=== PATIENT | female | born 1955 | race Caucasian/White ===

== ENCOUNTER 2017-10-28 01:32 | Inpatient (IN) | payer MEDICARE, MEDICAID ==
--- NOTE | 2017-10-28 02:06 | ED Physician Chart ---
ED Chief Complaint/HPI - Patient Information Date Seen:: 10/28/17 Time Seen:: 01:45 Chief Complaint:: fever History of Present Illness:: this is a 62 yo downs syndrome female was found to have fever last night and was sent to this er for evaluation and treatment. she is chronically ill with thyroid disease,hyperlipidema,seizures and dementia. Allergies:: Allergies Allergy/AdvReac Type Severity Reaction Status Date / Time No Known Allergies Allergy Verified 10/28/17 01:46 Vitals:: Vital Signs - 8 hr 10/28/17 01:35 Temp 97.7 F HR 67 RR 18 BP 105/38 O2 Sat % 96 Historian:: Patient, Medical Records Review:: Nurse's Note Reviewed ED Review of Systems - Review of Systems Skin: Other (this patient is unable to give a review of systems.) ED Past Medical History - Past Medical History Obtainable: Yes Past Medical History: Dyslipidemia, Seizures, Thyroid disorder, Dementia, Other (downs syndrome) Family History: None Social History: Non Smoker, No Alcohol, No Drug Use, Care Facility Surgical History: None Psychiatricy History: Dementia Medication: Reviewed Family Medical History - Family Member Mother History Unknown: Yes ED Physical Exam - Physical Examination General/Constitutional: Awake, Well-developed, well-nourished, Alert, No distress, GCS 15, Non-toxic appearing, Ambulatory Other Gen/Cons comments:: this patient is non-verbral with a resting tremor of the right upper extremity and a spastic right lower extremity. Head: Atraumatic Eyes: Lids, conjuctiva normal, PERRL, EOMI Skin: Nl inspection, No rash, No skin lesions, No ecchymosis, Well hydrated, No lymphadenopathy ENMT: External ears, nose nl, Nasal exam nl, Lips, teeth, gums nl Neck: Nontender, Full ROM w/o pain, No JVD, No nuchal rigidity, No bruit, No mass, No stridor Respiratory: Nl effort/Exclusion, Clear to Auscultation, No Wheeze/Rhonchi/Rales Cardio Vascular: RRR, No murmur, gallop, rubs, NL S1 S2 GI: No tenderness/rebounding/guarding, No organomegaly, No hernia, Normal BS's, Nondistended, No mass/bruits, No McBurney tenderness : No CVA tenderness Extremities: No tenderness or effusion, Full ROM, normal strength in all extremities, No edema, Normal digits & nails Neuro/Psych: Alert/oriented, DTR's symmetric, Normal sensory exam, Normal motor strength, Judgement/insight normal, Mood normal, Normal gait, No focal deficits Other Neuro/Psych comments:: the patient appears to be demented with on verbal responses. Misc: Normal back, No paraspinal tenderness ED Labs/Radiology/EKG Results - Lab Results Results: Abnormal Lab Results 10/28/17 10/28/17 10/28/17 02:00 02:00 02:00 WBC 7.3 RBC 4.53 Hgb 13.5 Hct 40.9 L MCV 90.3 MCH 29.9 MCHC Differential 33.1 RDW 13.1 Plt Count 265 MPV 7.2 Neutrophils % 56.7 Lymphocytes % 32.2 Monocytes % 9.2 Eosinophils % 0.6 Basophils % 1.3 PT 11.0 INR 1.06 Sodium 139 Potassium 3.8 Chloride 105 Carbon Dioxide 27.3 Anion Gap 10.5 BUN 17 Creatinine 0.9 Est GFR ( Amer) > 60.0 Est GFR (Non-Af Amer) > 60.0 BUN/Creatinine Ratio 18.9 Glucose 89 Calcium 9.2 Total Bilirubin 0.3 AST 14 ALT 13 Alkaline Phosphatase 73 Troponin I Total Protein 6.5 Albumin 3.1 L Globulin 3.4 Albumin/Globulin Ratio 0.9 L Urine Source Urine Color Urine Clarity Urine pH Ur Specific [place] Urine Protein Urine Glucose (UA) Urine Ketones Urine Blood Urine Nitrate Urine Bilirubin Urine Urobilinogen Ur Leukocyte Esterase Urine RBC Urine WBC Ur Epithelial Cells Urine Bacteria 10/28/17 10/28/17 02:00 02:10 WBC RBC Hgb Hct MCV MCH MCHC Differential RDW Plt Count MPV Neutrophils % Lymphocytes % Monocytes % Eosinophils % Basophils % PT INR Sodium Potassium Chloride Carbon Dioxide Anion Gap BUN Creatinine Est GFR ( Amer) Est GFR (Non-Af Amer) BUN/Creatinine Ratio Glucose Calcium Total Bilirubin AST ALT Alkaline Phosphatase Troponin I 0.01 Total Protein Albumin Globulin Albumin/Globulin Ratio Urine Source CLEAN C Urine Color YELLOW Urine Clarity CLOUDY H Urine pH 6.5 Ur Specific [place] 1.020 Urine Protein TRACE Urine Glucose (UA) NEGATIVE Urine Ketones NEGATIVE Urine Blood TRACE Urine Nitrate POSITIVE H Urine Bilirubin NEGATIVE Urine Urobilinogen 0.2 Ur Leukocyte Esterase SMALL H Urine RBC 0-2 Urine WBC 10-25 H Ur Epithelial Cells MODERATE Urine Bacteria MANY H - EKG Interpretations EKG Time:: 02:02 Rate & Rhythm: rate 62, sinus [place]: right axis Intervals: no ectopy seen ED Assessment - Assessment General Assessment: fever ED Septic Shock - . Is Septic Shock (SBP<90, OR Lactate>4 mmol\L) present?: No - <6hrs of presentation: Vital Signs: Vital Signs - 8 hr 10/28/17 01:35 Temp 97.7 F HR 67 RR 18 BP 105/38 O2 Sat % 96 ED Reassessment (Disposition) - Reassessment Reassessment Condition:: Unchanged - Diagnosis Diagnosis:: fever urinary tract infection - Patient Disposition Discharge/Transfer:: Acute Care w/in this hosp Admitting Medical Physician:: Alison Patino Condition at Disposition:: Improved
[2017-10-28 02:20] LABS: % BASOPHILS 1.3 % (0.0-2.0); % EOSINOPHILS 0.6 % (0.0-5.0); % LYMPHOCYTES 32.2 % (20.0-50.0); % MONOCYTES 9.2 % (2.0-10.0); % NEUTROPHILS 56.7 % (40.0-80.0); BASOPHILE ABSOLUTE 0.1 Th/cumm (0-0.2); HEMATOCRIT 40.9 % (41.0-60); HEMOGLOBIN 13.5 gm/dL (12-16); LYMPHOCYTE ABSOLUTE 2.4 Th/cmm (1.5-3.0); MEAN CELL VOLUME 90.3 fl (81-100); MEAN CORPUSCULAR HEMOGLOBIN 29.9 pg (27.0-31.0); MEAN CORPUSCULAR HGB CONC 33.1 pg (28.0-36.0); MEAN PLATELET VOLUME 7.2 fl; MONOCYTE ABSOLUTE 0.7 Th/cmm (0.3-1.0); NEUTROPHILE ABSOLUTE 4.1 Th/cmm (1.8-8.0); PLATELET COUNT 265 Th/cmm (150-400); RED BLOOD COUNT 4.53 Mil/cmm (3.80-5.10); RED CELL DISTRIBUTION WIDTH 13.1 % (11.5-20.0); WHITE BLOOD COUNT 7.3 Th/cmm (4.8-10.8)
[2017-10-28 02:33] LABS: URINE SOURCE CLEAN C
[2017-10-28 02:41] LABS: ALB/GLOB RATIO 0.9 (1.0-1.8); ALBUMIN 3.1 gm/dL (3.7-5.3); ALKALINE PHOSPHATASE 73 U/L (34-104); ANION GAP 10.5 (7.0-16.0); BILIRUBIN,TOTAL 0.3 mg/dL (0.3-1.0); BUN - UREA NITROGEN 17 mg/dL (7-25); CALCIUM SERUM 9.2 mg/dL (8.6-10.3); CARBON DIOXIDE 27.3 mEq/L (21.0-31.0); CHLORIDE 105 mEq/L (98-107); CREATININE - SERUM 0.9 mg/dL (0.6-1.2); GFR AFRICAN-AMERICAN > 60.0 ml/min (>90); GFR NON AFRICAN-AMERICAN > 60.0 ml/min; GLUCOSE 89 mg/dL (70-105); POTASSIUM SERUM 3.8 mEq/L (3.5-5.1); SGOT 14 U/L (13-39); SGPT/ALT 13 U/L (7-52); SODIUM SERUM 139 mEq/L (136-145); TOTAL PROTEIN,SERUM 6.5 gm/dL (6.0-8.3)
[2017-10-28 02:41] LABS: URINE BILIRUBIN NEGATIVE (NEGATIVE); URINE CLARITY CLOUDY (CLEAR); URINE COLOR YELLOW; URINE GLUCOSE (UA) NEGATIVE (NEGATIVE); URINE KETONE NEGATIVE (NEGATIVE); URINE MICROSCOPIC INDICATED? YES
[2017-10-28 02:44] LABS: URINE BLOOD TRACE (NEGATIVE); URINE NITRATE POSITIVE (NEGATIVE); URINE PH 6.5 (4.6 - 8.0); URINE PROTEIN TRACE mg/dL (NEGATIVE); URINE UROBILINOGEN 0.2 E.U./dL (0.2 - 1.0)
[2017-10-28 02:45] LABS: URINE LEUKOCYTE ESTERASE SMALL (NEGATIVE); URINE RBC 0-2 /hpf (0-5)
[2017-10-28 02:46] LABS: URINE BACTERIA MANY /hpf (NONE SEEN); URINE EPITHELIAL CELLS MODERATE /lpf (FEW)
[2017-10-28 02:47] LABS: INR 1.06 (0.5-1.4)
[2017-10-28] MEDS ORDERED: Magnesium Hydroxide (MOM) 30 mL UDC PO PRN (08:55)
[2017-10-28] MEDS ORDERED: LEVOTHYROXINE SODIUM 200 MCG PO SCH (09:00)
[2017-10-28] MEDS ORDERED: CHOLECALCIFEROL 1000 UNIT PO SCH (09:00)
[2017-10-28 09:48] LABS: CHOLESTEROL 161 mg/dL (<200); HDL -HIGH DENSITY LIPOPROTEIN 49 mg/dL (23-92); TRIGLYCERIDES 80 mg/dL (<150)
[2017-10-28] MEDS ORDERED: D5-0.45NS 1,000 ML IV SCH (10:01)
[2017-10-28] MEDS: Levofloxacin 500mg/100mL 500 MG/100 ML BAG IV SCH (10:24)
[2017-10-28] MEDS: Levothyroxine 0.1 Mg Tab PO SCH (10:25)
[2017-10-28] MEDS: Levothyroxine 0.025 Mg Tab PO SCH (10:26)
[2017-10-28] MEDS: D5-0.45NS 1,000 ML IV SCH (10:27)
--- NOTE | 2017-10-28 11:05 | History & Physical ---
ADMIT DATE: 10/28/2017 HISTORY OF PRESENT ILLNESS: This patient got a call from the Emergency Room, she had been calling ____ from 2:51 a.m., he had not answered; they decided to call me for admission at 7:50. Essentially, this patient has been diagnosed with urinary tract infection, Down syndrome, intellectual disability, hypothyroidism, hyperlipidemia, dementia, seizures, seborrheic dermatitis, vitamin D deficiency, fever and possible sepsis. The patient apparently was brought to the Emergency Room for fever and weakness and found to have UTI and sepsis. PAST MEDICAL HISTORY: As enumerated above. PAST SURGICAL HISTORY: As enumerated above. FAMILY HISTORY: Unremarkable. PHYSICAL EXAMINATION: HEAD: Normal. ENT: Normal. NECK: Supple, nontender. LUNGS: Clear. CARDIOVASCULAR SYSTEM: S1, S2 heard. ABDOMEN: Soft. Bowel sounds are heard. CENTRAL NERVOUS SYSTEM: The patient is mentally challenged. LABORATORY DATA: WBC count is 7.3, hemoglobin 13.5. Electrolytes are normal and EKG was normal. Chest x-ray was normal. DIAGNOSES: Fever, sepsis, urinary infection, ____, decreased mentation, dementia, seizures, history of hyperlipidemia, history of thyroid disorder, hypothyroidism. PLAN: The patient is being admitted. I will go ahead and give her IV antibiotics. Dr. Putnam to see the patient and I will follow the patient. JOB# [id number]
[2017-10-28] MEDS ORDERED: Pneumococcal Vaccine 0.5 mL Vial IM ONE (14:55)
--- NOTE | 2017-10-28 20:20 | Consultation ---
Consult Note - Consult Note Service Date: 10/28/17 Referring Physician: Meghan Michaels Consult Note: PHYSICIAN Consultation Note: Date of Admission: 10/28/17 Purpose of Consultation: UTI. Chief Complaint: Patient WILBER ROB was admitted to location Medical/ Surgical Unit I with FEVER,UTI. History of Present Illness: 62 year female with a past medical history of dementia, Down syndrome, a hypothyroidism, developmental delay, hyperlipidemia, seizure disorder, with vitamin D deficiency, developed fever so patient was sent to the ER for further evaluation and management. On initial evaluation patient's temperature was 97.7 F and WBC count was 7300. Urinalysis showed a signs of UTI. Levaquin was started and ID consult was called for antibiotic management. Past Medical History: dementia, Down syndrome, a hypothyroidism, developmental delay, hyperlipidemia, seizure disorder, seborrheic dermatitis, with vitamin D deficiency Allergies Allergy/AdvReac Type Severity Reaction Status Date / Time No Known Allergies Allergy Verified 10/28/17 01:46 Vital Signs Temp 97.9 F 10/28/17 15:52 Pulse 95 10/28/17 15:52 Resp 18 10/28/17 15:52 BP 128/59 10/28/17 15:52 Pulse Ox 99 10/28/17 15:52 Intake & Output 10/28/17 10/28/17 10/29/17 06:59 18:59 06:59 Weight (lbs) 56.245 kg 2.325 kg Other: # Voids 3 # Bowel Movements 0 Weight Source Estimated Bedscale Laboratory Results - last 24 hr 10/28/17 10/28/17 10/28/17 02:00 02:00 02:00 WBC 7.3 RBC 4.53 Hgb 13.5 Hct 40.9 L MCV 90.3 MCH 29.9 MCHC Differential 33.1 RDW 13.1 Plt Count 265 MPV 7.2 Neutrophils % 56.7 Lymphocytes % 32.2 Monocytes % 9.2 Eosinophils % 0.6 Basophils % 1.3 PT 11.0 INR 1.06 Sodium 139 Potassium 3.8 Chloride 105 Carbon Dioxide 27.3 Anion Gap 10.5 BUN 17 Creatinine 0.9 Est GFR ( Amer) > 60.0 Est GFR (Non-Af Amer) > 60.0 BUN/Creatinine Ratio 18.9 Glucose 89 Calcium 9.2 Total Bilirubin 0.3 AST 14 ALT 13 Alkaline Phosphatase 73 Troponin I Total Protein 6.5 Albumin 3.1 L Globulin 3.4 Albumin/Globulin Ratio 0.9 L Triglycerides Cholesterol LDL Cholesterol Direct HDL Cholesterol TSH Urine Source Urine Color Urine Clarity Urine pH Ur Specific [place] Urine Protein Urine Glucose (UA) Urine Ketones Urine Blood Urine Nitrate Urine Bilirubin Urine Urobilinogen Ur Leukocyte Esterase Urine RBC Urine WBC Ur Epithelial Cells Urine Bacteria 10/28/17 10/28/17 10/28/17 02:00 02:10 09:05 WBC RBC Hgb Hct MCV MCH MCHC Differential RDW Plt Count MPV Neutrophils % Lymphocytes % Monocytes % Eosinophils % Basophils % PT INR Sodium Potassium Chloride Carbon Dioxide Anion Gap BUN Creatinine Est GFR ( Amer) Est GFR (Non-Af Amer) BUN/Creatinine Ratio Glucose Calcium Total Bilirubin AST ALT Alkaline Phosphatase Troponin I 0.01 Total Protein Albumin Globulin Albumin/Globulin Ratio Triglycerides 80 Cholesterol 161 LDL Cholesterol Direct 95 HDL Cholesterol 49 TSH Urine Source CLEAN C Urine Color YELLOW Urine Clarity CLOUDY H Urine pH 6.5 Ur Specific [place] 1.020 Urine Protein TRACE Urine Glucose (UA) NEGATIVE Urine Ketones NEGATIVE Urine Blood TRACE Urine Nitrate POSITIVE H Urine Bilirubin NEGATIVE Urine Urobilinogen 0.2 Ur Leukocyte Esterase SMALL H Urine RBC 0-2 Urine WBC 10-25 H Ur Epithelial Cells MODERATE Urine Bacteria MANY H 10/28/17 09:20 WBC RBC Hgb Hct MCV MCH MCHC Differential RDW Plt Count MPV Neutrophils % Lymphocytes % Monocytes % Eosinophils % Basophils % PT INR Sodium Potassium Chloride Carbon Dioxide Anion Gap BUN Creatinine Est GFR ( Amer) Est GFR (Non-Af Amer) BUN/Creatinine Ratio Glucose Calcium Total Bilirubin AST ALT Alkaline Phosphatase Troponin I Total Protein Albumin Globulin Albumin/Globulin Ratio Triglycerides Cholesterol LDL Cholesterol Direct HDL Cholesterol TSH 0.14 L Urine Source Urine Color Urine Clarity Urine pH Ur Specific [place] Urine Protein Urine Glucose (UA) Urine Ketones Urine Blood Urine Nitrate Urine Bilirubin Urine Urobilinogen Ur Leukocyte Esterase Urine RBC Urine WBC Ur Epithelial Cells Urine Bacteria Home Medication Medication Instructions Recorded Type Acetaminophen [Tylenol] 325 mg PO Q4HR PRN 10/28/17 History Calcium Carbonate [Oyster Shell 500 mg PO 1700 10/28/17 History Calcium] Cholecalciferol (Vitamin D3) 1,000 unit PO DAILY 10/28/17 History [Vitamin D3] Donepezil Hcl [Aricept] 10 mg PO DAILY 10/28/17 History Lamotrigine [Lamictal] 50 mg PO BID 10/28/17 History Levothyroxine Sodium 25 mcg PO DAILY 10/28/17 History Levothyroxine Sodium 200 mcg PO DAILY 10/28/17 History Magnesium Hydroxide [Milk of 30 ml PO Q72HR PRN 10/28/17 History Magnesia] Simvastatin [Zocor] 10 mg PO HS 10/28/17 History Current Medications Generic Name Dose Route Start Last Admin Trade Name Barbie PRN Reason Stop Dose Admin Acetaminophen 325 mg 10/28/17 08:55 Tylenol PO 12/27/17 08:54 Q4HR PRN Pain or Fever >101 Calcium Carbonate 500 mg 10/28/17 17:00 10/28/17 17:40 Os-Daniel PO 12/27/17 16:59 500 mg 1700 [facility] Administration Cholecalciferol 1,000 iu 10/28/17 09:00 10/28/17 10:25 Vitamin D3 PO 12/27/17 08:59 1,000 iu DAILY [facility] Administration Donepezil HCl 10 mg 10/28/17 09:00 10/28/17 10:26 Aricept PO 12/27/17 08:59 10 mg DAILY [facility] Administration Levofloxacin 500 mg in 100 mls @ 100 mls/hr 10/28/17 09:00 10/28/17 10:24 Levaquin Pb IV 12/27/17 08:59 100 mls/hr Q24HR [facility] Administration Dextrose/Sodium Chloride 1,000 mls @ 50 mls/hr 10/28/17 09:31 10/28/17 10:27 D5-0.45ns IV 12/27/17 09:30 50 mls/hr .Q20H [facility] Administration Lamotrigine 50 mg 10/28/17 09:00 Lamictal PO 12/27/17 08:59 BID [facility] Protocol Levothyroxine Sodium 0.025 mg 10/28/17 09:00 10/28/17 10:26 Synthroid PO 12/27/17 08:59 0.025 mg QDAC [facility] Administration Levothyroxine Sodium 0.2 mg 10/28/17 09:00 10/28/17 10:25 Synthroid PO 12/27/17 08:59 0.2 mg QDAC [facility] Administration Magnesium Hydroxide 30 ml 10/28/17 08:55 Milk Of Magnesia PO 12/27/17 08:54 Q72HR PRN Constipation Simvastatin 10 mg 10/28/17 21:00 Zocor PO 12/27/17 20:59 HS [facility] Protocol Review of Systems: A 12 point ROS was reviewed with the pertinent positive and negatives noted in the HPI. Assessment and unable to give any history. Social History Smoking Status Unknown if ever smoked Family Medical History Noncontributory. Physical Exam: General: Comfortable, lean and thin female HEENT: Head: NC NT Oral cavity: moist, pink tongue. Neck: Supple. no JVD, no carotid bruit Cardio: S1 and S2 WNL. Respiratory: CTAP Abdominal: Soft NT ND BS Genital/Urinary: Extremities: NCCE Neurological: open eyes Assessment: UTI Dementia. Diabetes mellitus type 2. Hyperlipidemia. Developmental delay. Down syndrome. Plan: Continue levaquin. Thank you, Dr. Michaels for involving me in taking care of this patient Signed, Nas Putnam M.D. [id number]
[2017-10-29 05:36] LABS: % BASOPHILS 1.7 % (0.0-2.0); % EOSINOPHILS 1.3 % (0.0-5.0); BASOPHILE ABSOLUTE 0.1 Th/cumm (0-0.2); EOSINOPHILE ABSOLUTE 0.1 Th/cmm (0.1-0.4); HEMATOCRIT 43.3 % (41.0-60); HEMOGLOBIN 14.6 gm/dL (12-16); LYMPHOCYTE ABSOLUTE 1.7 Th/cmm (1.5-3.0); MEAN CELL VOLUME 90.4 fl (81-100); MEAN CORPUSCULAR HEMOGLOBIN 30.5 pg (27.0-31.0); MEAN CORPUSCULAR HGB CONC 33.7 pg (28.0-36.0); MEAN PLATELET VOLUME 7.4 fl; MONOCYTE ABSOLUTE 0.6 Th/cmm (0.3-1.0); NEUTROPHILE ABSOLUTE 2.6 Th/cmm (1.8-8.0); PLATELET COUNT 293 Th/cmm (150-400); RED BLOOD COUNT 4.79 Mil/cmm (3.80-5.10); RED CELL DISTRIBUTION WIDTH 13.2 % (11.5-20.0); WHITE BLOOD COUNT 5.1 Th/cmm (4.8-10.8)
[2017-10-29 05:49] LABS: ALB/GLOB RATIO 1.1 (1.0-1.8); ALBUMIN 3.6 gm/dL (3.7-5.3); ALKALINE PHOSPHATASE 75 U/L (34-104); ANION GAP 10.4 (7.0-16.0); BILIRUBIN,TOTAL 0.2 mg/dL (0.3-1.0); BUN - UREA NITROGEN 11 mg/dL (7-25); CALCIUM SERUM 9.4 mg/dL (8.6-10.3); CARBON DIOXIDE 28.5 mEq/L (21.0-31.0); CHLORIDE 103 mEq/L (98-107); CREATININE - SERUM 0.9 mg/dL (0.6-1.2); GFR AFRICAN-AMERICAN > 60.0 ml/min (>90); GFR NON AFRICAN-AMERICAN > 60.0 ml/min; GLUCOSE 94 mg/dL (70-105); POTASSIUM SERUM 3.9 mEq/L (3.5-5.1); SGOT 15 U/L (13-39); SGPT/ALT 11 U/L (7-52); SODIUM SERUM 138 mEq/L (136-145)
--- NOTE | 2017-10-29 07:19 | Diagnostic Imaging Report ---
Portable chest x-ray Time: 12:30 History: Congestion Allowing for portable technique the heart size is normal. No focal pulmonary parenchymal processes. No hilar or mediastinal abnormalities. Impression: No acute abnormalities.
[2017-10-29] MEDS: Levothyroxine 0.025 Mg Tab PO SCH (09:32)
[2017-10-29] MEDS: Levothyroxine 0.1 Mg Tab PO SCH (09:32)
[2017-10-29] MEDS: Levofloxacin 500mg/100mL 500 MG/100 ML BAG IV SCH (09:33)
[2017-10-29] MEDS ORDERED: VTE Chemical Prophylaxis Screen/Admission MC PRN (12:11)
[2017-10-29] MEDS ORDERED: Probiotic Screen MC PRN (12:56)
--- NOTE | 2017-10-29 13:34 | Infectious Disease Prog Note ---
Infectious Disease Subjective - Review of Systems Service Date: 10/29/17 Subjective: Blood cultures grew GNR. Infectious Disease Objective - Results Result Diagrams: 10/29/17 04:50 10/29/17 04:50 Recent Labs: Laboratory Last Values WBC 5.1 Th/cmm (4.8-10.8) 10/29/17 04:50 RBC 4.79 Mil/cmm (3.80-5.10) 10/29/17 04:50 Hgb 14.6 gm/dL (12-16) 10/29/17 04:50 Hct 43.3 % (41.0-60) 10/29/17 04:50 MCV 90.4 fl (81-100) 10/29/17 04:50 MCH 30.5 pg (27.0-31.0) 10/29/17 04:50 MCHC Differential 33.7 pg (28.0-36.0) 10/29/17 04:50 RDW 13.2 % (11.5-20.0) 10/29/17 04:50 Plt Count 293 Th/cmm (150-400) 10/29/17 04:50 MPV 7.4 fl 10/29/17 04:50 Neutrophils % 53.0 % (40.0-80.0) 10/29/17 04:50 Lymphocytes % 33.0 % (20.0-50.0) 10/29/17 04:50 Monocytes % 11.0 % (2.0-10.0) H 10/29/17 04:50 Eosinophils % 1.3 % (0.0-5.0) 10/29/17 04:50 Basophils % 1.7 % (0.0-2.0) 10/29/17 04:50 PT 11.0 SECONDS (9.5-11.5) 10/28/17 02:00 INR 1.06 (0.5-1.4) 10/28/17 02:00 Sodium 138 mEq/L (136-145) 10/29/17 04:50 Potassium 3.9 mEq/L (3.5-5.1) 10/29/17 04:50 Chloride 103 mEq/L (98-107) 10/29/17 04:50 Carbon Dioxide 28.5 mEq/L (21.0-31.0) 10/29/17 04:50 Anion Gap 10.4 (7.0-16.0) 10/29/17 04:50 BUN 11 mg/dL (7-25) 10/29/17 04:50 Creatinine 0.9 mg/dL (0.6-1.2) 10/29/17 04:50 Est GFR ( Amer) > 60.0 ml/min (>90) 10/29/17 04:50 Est GFR (Non-Af Amer) > 60.0 ml/min 10/29/17 04:50 BUN/Creatinine Ratio 12.2 10/29/17 04:50 Glucose 94 mg/dL (70-105) 10/29/17 04:50 Calcium 9.4 mg/dL (8.6-10.3) 10/29/17 04:50 Total Bilirubin 0.2 mg/dL (0.3-1.0) L 10/29/17 04:50 AST 15 U/L (13-39) 10/29/17 04:50 ALT 11 U/L (7-52) 10/29/17 04:50 Alkaline Phosphatase 75 U/L (34-104) 10/29/17 04:50 Troponin I 0.01 ng/mL (0.01-0.05) 10/28/17 02:00 Total Protein 7.0 gm/dL (6.0-8.3) 10/29/17 04:50 Albumin 3.6 gm/dL (3.7-5.3) L 10/29/17 04:50 Globulin 3.4 gm/dL 10/29/17 04:50 Albumin/Globulin Ratio 1.1 (1.0-1.8) 10/29/17 04:50 Triglycerides 80 mg/dL (<150) 10/28/17 09:05 Cholesterol 161 mg/dL (<200) 10/28/17 09:05 LDL Cholesterol Direct 95 mg/dL (75-193) 10/28/17 09:05 HDL Cholesterol 49 mg/dL (23-92) 10/28/17 09:05 TSH 0.14 uIU/ml (0.34-5.60) L 10/28/17 09:20 Urine Source CLEAN C 10/28/17 02:10 Urine Color YELLOW 10/28/17 02:10 Urine Clarity CLOUDY (CLEAR) H 10/28/17 02:10 Urine pH 6.5 (4.6 - 8.0) 10/28/17 02:10 Ur Specific [place] 1.020 (1.005-1.030) 10/28/17 02:10 Urine Protein TRACE mg/dL (NEGATIVE) 10/28/17 02:10 Urine Glucose (UA) NEGATIVE mg/dL (NEGATIVE) 10/28/17 02:10 Urine Ketones NEGATIVE mg/dL (NEGATIVE) 10/28/17 02:10 Urine Blood TRACE (NEGATIVE) 10/28/17 02:10 Urine Nitrate POSITIVE (NEGATIVE) H 10/28/17 02:10 Urine Bilirubin NEGATIVE (NEGATIVE) 10/28/17 02:10 Urine Urobilinogen 0.2 E.U./dL (0.2 - 1.0) 10/28/17 02:10 Ur Leukocyte Esterase SMALL (NEGATIVE) H 10/28/17 02:10 Urine RBC 0-2 /hpf (0-5) 10/28/17 02:10 Urine WBC 10-25 /hpf (0-5) H 10/28/17 02:10 Ur Epithelial Cells MODERATE /lpf (FEW) 10/28/17 02:10 Urine Bacteria MANY /hpf (NONE SEEN) H 10/28/17 02:10 - Physical Exam Vitals and I&O: Vital Signs Temp 97.8 F 10/29/17 12:09 Pulse 65 10/29/17 12:09 Resp 18 10/29/17 12:09 BP 136/48 10/29/17 12:09 Pulse Ox 98 10/29/17 12:09 Intake & Output 10/28/17 10/29/17 10/29/17 18:59 06:59 18:59 Intake Total 100 100 Balance 100 100 Weight (lbs) 2.325 kg 59.285 kg Intake: Intake, IV Amount 100 Levofloxacin 500mg/100mL 100 500 mg In 100 ml @ 100 mls/hr IV Q24HR [facility] Rx#: [id number] Oral 100 Other: # Voids 3 2 # Bowel Movements 0 0 Weight Source Bedscale Bedscale Active Medications: Current Medications Acetaminophen (Tylenol) 325 mg PO Q4HR PRN PRN Reason: Pain or Fever >101 Stop: 12/27/17 08:54 Calcium Carbonate (Os-Daniel) 500 mg PO 1700 [facility] Stop: 12/27/17 16:59 Last Admin: 10/28/17 17:40 Dose: 500 mg Cholecalciferol (Vitamin D3) 1,000 iu PO DAILY [facility] Stop: 12/27/17 08:59 Last Admin: 10/29/17 09:32 Dose: 1,000 iu Donepezil HCl (Aricept) 10 mg PO DAILY [facility] Stop: 12/27/17 08:59 Last Admin: 10/29/17 09:32 Dose: 10 mg Heparin Sodium (Porcine) (Heparin) 5,000 units SUBQ Q12HR [facility] Stop: 12/28/17 20:59 Levofloxacin (Levaquin Pb) 500 mg in 100 mls @ 100 mls/hr IV Q24HR [facility] Stop: 12/27/17 08:59 Last Admin: 10/29/17 09:33 Dose: 100 mls/hr Dextrose/Sodium Chloride (D5-0.45ns) 1,000 mls @ 50 mls/hr IV .Q20H [facility] Stop: 12/27/17 09:30 Last Admin: 10/28/17 10:27 Dose: 50 mls/hr Piperacillin Sod/Tazobactam (Sod 3.375 gm/ Sodium Chloride) 50 mls @ 100 mls/ hr IV Q8H [facility] Stop: 12/28/17 10:59 Last Admin: 10/29/17 11:05 Dose: 100 mls/hr Lactobacillus Rhamnosus (Culturelle 15b) 1 each PO DAILY [facility] Stop: 12/28/17 13:59 Lamotrigine (Lamictal) 50 mg PO BID [facility]; Protocol Stop: 12/27/17 08:59 Levothyroxine Sodium (Synthroid) 0.025 mg PO QDAC [facility] Stop: 12/27/17 08:59 Last Admin: 10/29/17 09:32 Dose: 0.025 mg Levothyroxine Sodium (Synthroid) 0.2 mg PO QDAC [facility] Stop: 12/27/17 08:59 Last Admin: 10/29/17 09:32 Dose: 0.2 mg Magnesium Hydroxide (Milk Of Magnesia) 30 ml PO Q72HR PRN PRN Reason: Constipation Stop: 12/27/17 08:54 Miscellaneous (Zosyn Iv Per Pharmacy) 1 ea [facility] PRN PRN PRN Reason: PROTOCOL Stop: 12/28/17 09:29 Miscellaneous (Vte [employer] Prophylaxis Screen/ Admission) 1 ea [facility] PRN PRN PRN Reason: PROTOCOL Stop: 12/28/17 12:10 Miscellaneous (Probiotic Screen) 1 ea MC PRN PRN PRN Reason: PROTOCOL Stop: 12/28/17 12:55 Simvastatin (Zocor) 10 mg PO HS [facility]; Protocol Stop: 12/27/17 20:59 Last Admin: 10/28/17 20:48 Dose: 10 mg General: no acute distress, well developed, well nourished HEENT: atraumatic, normocephalic, PERRLA Neck: supple, no thyromegaly Cardiovascular: S1S2, regular Lungs: clear to auscultation bilaterally, clear to percussion Abdomen: soft, no tender, no distended Extremities: no cyanosis, no clubbing, no edema Neurological: awake Skin: intact Infectious Disease Assmt/Plan - Assessment Assessment: 1. GNR bacteremia. 2. UTI 3. Dementia. 4. Diabetes mellitus type 2. 5. Hyperlipidemia. 6. Developmental delay. 7. Down syndrome. - Plan Plan: Will add Zosyn and renal us. Harish rivers.
[2017-10-29] MEDS: Lactobacillus Rhamnosus GG 15 Billion CFU CAP.SPRINK PO SCH (13:49)
--- NOTE | 2017-10-29 15:45 | General Progress Note ---
Subjective - Review of Systems Events since last encounter: in no distress Objective - Results Result Diagrams: 10/29/17 04:50 10/29/17 04:50 Recent Labs: Laboratory Last Values WBC 5.1 Th/cmm (4.8-10.8) 10/29/17 04:50 RBC 4.79 Mil/cmm (3.80-5.10) 10/29/17 04:50 Hgb 14.6 gm/dL (12-16) 10/29/17 04:50 Hct 43.3 % (41.0-60) 10/29/17 04:50 MCV 90.4 fl (81-100) 10/29/17 04:50 MCH 30.5 pg (27.0-31.0) 10/29/17 04:50 MCHC Differential 33.7 pg (28.0-36.0) 10/29/17 04:50 RDW 13.2 % (11.5-20.0) 10/29/17 04:50 Plt Count 293 Th/cmm (150-400) 10/29/17 04:50 MPV 7.4 fl 10/29/17 04:50 Neutrophils % 53.0 % (40.0-80.0) 10/29/17 04:50 Lymphocytes % 33.0 % (20.0-50.0) 10/29/17 04:50 Monocytes % 11.0 % (2.0-10.0) H 10/29/17 04:50 Eosinophils % 1.3 % (0.0-5.0) 10/29/17 04:50 Basophils % 1.7 % (0.0-2.0) 10/29/17 04:50 PT 11.0 SECONDS (9.5-11.5) 10/28/17 02:00 INR 1.06 (0.5-1.4) 10/28/17 02:00 Sodium 138 mEq/L (136-145) 10/29/17 04:50 Potassium 3.9 mEq/L (3.5-5.1) 10/29/17 04:50 Chloride 103 mEq/L (98-107) 10/29/17 04:50 Carbon Dioxide 28.5 mEq/L (21.0-31.0) 10/29/17 04:50 Anion Gap 10.4 (7.0-16.0) 10/29/17 04:50 BUN 11 mg/dL (7-25) 10/29/17 04:50 Creatinine 0.9 mg/dL (0.6-1.2) 10/29/17 04:50 Est GFR ( Amer) > 60.0 ml/min (>90) 10/29/17 04:50 Est GFR (Non-Af Amer) > 60.0 ml/min 10/29/17 04:50 BUN/Creatinine Ratio 12.2 10/29/17 04:50 Glucose 94 mg/dL (70-105) 10/29/17 04:50 Calcium 9.4 mg/dL (8.6-10.3) 10/29/17 04:50 Total Bilirubin 0.2 mg/dL (0.3-1.0) L 10/29/17 04:50 AST 15 U/L (13-39) 10/29/17 04:50 ALT 11 U/L (7-52) 10/29/17 04:50 Alkaline Phosphatase 75 U/L (34-104) 10/29/17 04:50 Troponin I 0.01 ng/mL (0.01-0.05) 10/28/17 02:00 Total Protein 7.0 gm/dL (6.0-8.3) 10/29/17 04:50 Albumin 3.6 gm/dL (3.7-5.3) L 10/29/17 04:50 Globulin 3.4 gm/dL 10/29/17 04:50 Albumin/Globulin Ratio 1.1 (1.0-1.8) 10/29/17 04:50 Triglycerides 80 mg/dL (<150) 10/28/17 09:05 Cholesterol 161 mg/dL (<200) 10/28/17 09:05 LDL Cholesterol Direct 95 mg/dL (75-193) 10/28/17 09:05 HDL Cholesterol 49 mg/dL (23-92) 10/28/17 09:05 TSH 0.14 uIU/ml (0.34-5.60) L 10/28/17 09:20 Urine Source CLEAN C 10/28/17 02:10 Urine Color YELLOW 10/28/17 02:10 Urine Clarity CLOUDY (CLEAR) H 10/28/17 02:10 Urine pH 6.5 (4.6 - 8.0) 10/28/17 02:10 Ur Specific [place] 1.020 (1.005-1.030) 10/28/17 02:10 Urine Protein TRACE mg/dL (NEGATIVE) 10/28/17 02:10 Urine Glucose (UA) NEGATIVE mg/dL (NEGATIVE) 10/28/17 02:10 Urine Ketones NEGATIVE mg/dL (NEGATIVE) 10/28/17 02:10 Urine Blood TRACE (NEGATIVE) 10/28/17 02:10 Urine Nitrate POSITIVE (NEGATIVE) H 10/28/17 02:10 Urine Bilirubin NEGATIVE (NEGATIVE) 10/28/17 02:10 Urine Urobilinogen 0.2 E.U./dL (0.2 - 1.0) 10/28/17 02:10 Ur Leukocyte Esterase SMALL (NEGATIVE) H 10/28/17 02:10 Urine RBC 0-2 /hpf (0-5) 10/28/17 02:10 Urine WBC 10-25 /hpf (0-5) H 10/28/17 02:10 Ur Epithelial Cells MODERATE /lpf (FEW) 10/28/17 02:10 Urine Bacteria MANY /hpf (NONE SEEN) H 10/28/17 02:10 - Physical Exam Vitals and I&O: Vital Signs Temp 97.8 F 10/29/17 12:09 Pulse 65 10/29/17 12:09 Resp 18 10/29/17 12:09 BP 136/48 10/29/17 12:09 Pulse Ox 98 10/29/17 12:09 Intake & Output 10/28/17 10/29/17 10/29/17 18:59 06:59 18:59 Intake Total 100 100 Balance 100 100 Weight (lbs) 2.325 kg 59.285 kg Intake: Intake, IV Amount 100 Levofloxacin 500mg/100mL 100 500 mg In 100 ml @ 100 mls/hr IV Q24HR [facility] Rx#: [id number] Oral 100 Other: # Voids 3 2 # Bowel Movements 0 0 Weight Source Bedscale Bedscale Active Medications: Current Medications Acetaminophen (Tylenol) 325 mg PO Q4HR PRN PRN Reason: Pain or Fever >101 Stop: 12/27/17 08:54 Calcium Carbonate (Os-Daniel) 500 mg PO 1700 [facility] Stop: 12/27/17 16:59 Last Admin: 10/28/17 17:40 Dose: 500 mg Cholecalciferol (Vitamin D3) 1,000 iu PO DAILY [facility] Stop: 12/27/17 08:59 Last Admin: 10/29/17 09:32 Dose: 1,000 iu Donepezil HCl (Aricept) 10 mg PO DAILY [facility] Stop: 12/27/17 08:59 Last Admin: 10/29/17 09:32 Dose: 10 mg Heparin Sodium (Porcine) (Heparin) 5,000 units SUBQ Q12HR [facility] Stop: 12/28/17 20:59 Dextrose/Sodium Chloride (D5-0.45ns) 1,000 mls @ 50 mls/hr IV .Q20H [facility] Stop: 12/27/17 09:30 Last Admin: 10/28/17 10:27 Dose: 50 mls/hr Piperacillin Sod/Tazobactam (Sod 3.375 gm/ Sodium Chloride) 50 mls @ 100 mls/ hr IV Q8H [facility] Stop: 12/28/17 10:59 Last Admin: 10/29/17 11:05 Dose: 100 mls/hr Lactobacillus Rhamnosus (Culturelle 15b) 1 each PO DAILY [facility] Stop: 12/28/17 13:59 Last Admin: 10/29/17 13:49 Dose: 1 each Lamotrigine (Lamictal) 50 mg PO BID [facility]; Protocol Stop: 12/27/17 08:59 Levothyroxine Sodium (Synthroid) 0.025 mg PO QDAC [facility] Stop: 12/27/17 08:59 Last Admin: 10/29/17 09:32 Dose: 0.025 mg Levothyroxine Sodium (Synthroid) 0.2 mg PO QDAC [facility] Stop: 12/27/17 08:59 Last Admin: 10/29/17 09:32 Dose: 0.2 mg Magnesium Hydroxide (Milk Of Magnesia) 30 ml PO Q72HR PRN PRN Reason: Constipation Stop: 12/27/17 08:54 Miscellaneous (Zosyn Iv Per Pharmacy) 1 ea PRN PRN PRN Reason: PROTOCOL Stop: 12/28/17 09:29 Miscellaneous (Vte Chemical Prophylaxis Screen/ Admission) 1 ea PRN PRN PRN Reason: PROTOCOL Stop: 12/28/17 12:10 Miscellaneous (Probiotic Screen) 1 ea PRN PRN PRN Reason: PROTOCOL Stop: 12/28/17 12:55 Simvastatin (Zocor) 10 mg PO HS [facility]; Protocol Stop: 12/27/17 20:59 Last Admin: 10/28/17 20:48 Dose: 10 mg
[2017-10-30] MEDS: Levothyroxine 0.1 Mg Tab PO SCH (06:41)
[2017-10-30] MEDS: Levothyroxine 0.025 Mg Tab PO SCH (06:41)
[2017-10-30] MEDS: D5-0.45NS 1,000 ML IV SCH (06:42)
[2017-10-30] MEDS: Lactobacillus Rhamnosus GG 15 Billion CFU CAP.SPRINK PO SCH (08:44)
--- NOTE | 2017-10-30 12:34 | Diagnostic Imaging Report ---
Renal ultrasound HISTORY: Pain, pyelonephritis, hydronephrosis The right kidney is normal in size (10.2 x 5.5 x 4.8 cm). No focal parenchymal lesions. Minimal fullness of the renal pelvis. No megan hydronephrosis. The left kidney is normal in size (10.9 x 4.9 x 4.6 cm). No focal lesions. No hydronephrosis. No intraluminal abnormality seen within the urinary bladder. IMPRESSION: Negative examination
--- NOTE | 2017-10-30 20:09 | Internal Medicine Prog Note ---
Internal Medicine Subjective - Subjective Service Date: 10/30/17 Internal Medicine Objective - Results Result Diagrams: 10/29/17 04:50 10/29/17 04:50 Recent Labs: Laboratory Last Values WBC 5.1 Th/cmm (4.8-10.8) 10/29/17 04:50 RBC 4.79 Mil/cmm (3.80-5.10) 10/29/17 04:50 Hgb 14.6 gm/dL (12-16) 10/29/17 04:50 Hct 43.3 % (41.0-60) 10/29/17 04:50 MCV 90.4 fl (81-100) 10/29/17 04:50 MCH 30.5 pg (27.0-31.0) 10/29/17 04:50 MCHC Differential 33.7 pg (28.0-36.0) 10/29/17 04:50 RDW 13.2 % (11.5-20.0) 10/29/17 04:50 Plt Count 293 Th/cmm (150-400) 10/29/17 04:50 MPV 7.4 fl 10/29/17 04:50 Neutrophils % 53.0 % (40.0-80.0) 10/29/17 04:50 Lymphocytes % 33.0 % (20.0-50.0) 10/29/17 04:50 Monocytes % 11.0 % (2.0-10.0) H 10/29/17 04:50 Eosinophils % 1.3 % (0.0-5.0) 10/29/17 04:50 Basophils % 1.7 % (0.0-2.0) 10/29/17 04:50 PT 11.0 SECONDS (9.5-11.5) 10/28/17 02:00 INR 1.06 (0.5-1.4) 10/28/17 02:00 Sodium 138 mEq/L (136-145) 10/29/17 04:50 Potassium 3.9 mEq/L (3.5-5.1) 10/29/17 04:50 Chloride 103 mEq/L (98-107) 10/29/17 04:50 Carbon Dioxide 28.5 mEq/L (21.0-31.0) 10/29/17 04:50 Anion Gap 10.4 (7.0-16.0) 10/29/17 04:50 BUN 11 mg/dL (7-25) 10/29/17 04:50 Creatinine 0.9 mg/dL (0.6-1.2) 10/29/17 04:50 Est GFR ( Amer) > 60.0 ml/min (>90) 10/29/17 04:50 Est GFR (Non-Af Amer) > 60.0 ml/min 10/29/17 04:50 BUN/Creatinine Ratio 12.2 10/29/17 04:50 Glucose 94 mg/dL (70-105) 10/29/17 04:50 POC Glucose 112 MG/DL (70-105) H 10/30/17 05:18 Calcium 9.4 mg/dL (8.6-10.3) 10/29/17 04:50 Total Bilirubin 0.2 mg/dL (0.3-1.0) L 10/29/17 04:50 AST 15 U/L (13-39) 10/29/17 04:50 ALT 11 U/L (7-52) 10/29/17 04:50 Alkaline Phosphatase 75 U/L (34-104) 10/29/17 04:50 Troponin I 0.01 ng/mL (0.01-0.05) 10/28/17 02:00 Total Protein 7.0 gm/dL (6.0-8.3) 10/29/17 04:50 Albumin 3.6 gm/dL (3.7-5.3) L 10/29/17 04:50 Globulin 3.4 gm/dL 10/29/17 04:50 Albumin/Globulin Ratio 1.1 (1.0-1.8) 10/29/17 04:50 Triglycerides 80 mg/dL (<150) 10/28/17 09:05 Cholesterol 161 mg/dL (<200) 10/28/17 09:05 LDL Cholesterol Direct 95 mg/dL (75-193) 10/28/17 09:05 HDL Cholesterol 49 mg/dL (23-92) 10/28/17 09:05 TSH 0.14 uIU/ml (0.34-5.60) L 10/28/17 09:20 Urine Source CLEAN C 10/28/17 02:10 Urine Color YELLOW 10/28/17 02:10 Urine Clarity CLOUDY (CLEAR) H 10/28/17 02:10 Urine pH 6.5 (4.6 - 8.0) 10/28/17 02:10 Ur Specific [place] 1.020 (1.005-1.030) 10/28/17 02:10 Urine Protein TRACE mg/dL (NEGATIVE) 10/28/17 02:10 Urine Glucose (UA) NEGATIVE mg/dL (NEGATIVE) 10/28/17 02:10 Urine Ketones NEGATIVE mg/dL (NEGATIVE) 10/28/17 02:10 Urine Blood TRACE (NEGATIVE) 10/28/17 02:10 Urine Nitrate POSITIVE (NEGATIVE) H 10/28/17 02:10 Urine Bilirubin NEGATIVE (NEGATIVE) 10/28/17 02:10 Urine Urobilinogen 0.2 E.U./dL (0.2 - 1.0) 10/28/17 02:10 Ur Leukocyte Esterase SMALL (NEGATIVE) H 10/28/17 02:10 Urine RBC 0-2 /hpf (0-5) 10/28/17 02:10 Urine WBC 10-25 /hpf (0-5) H 10/28/17 02:10 Ur Epithelial Cells MODERATE /lpf (FEW) 10/28/17 02:10 Urine Bacteria MANY /hpf (NONE SEEN) H 10/28/17 02:10 - Physical Exam Vitals and I&O: Vital Signs Temp 96.9 F 10/30/17 16:00 Pulse 78 10/30/17 16:00 Resp 18 10/30/17 16:00 BP 120/60 10/30/17 16:00 Pulse Ox 97 10/30/17 16:00 Intake & Output 10/30/17 10/30/17 10/31/17 06:59 18:59 06:59 Intake Total 400 500 Balance 400 500 Weight (lbs) 130 lb 130 lb Intake: Intake, IV Amount 100 50 Piperacillin Sodium/ 100 50 Tazobact 3.375 gm In Sodium Chloride 0.9% 50 ml @ 100 mls/hr IV Q8H [facility] Rx#:[id number] Oral 300 450 Other: # Voids 3 3 # Bowel Movements 2 Weight Source Estimated Bedscale Active Medications: Current Medications Acetaminophen (Tylenol) 325 mg PO Q4HR PRN PRN Reason: Pain or Fever >101 Stop: 12/27/17 08:54 Calcium Carbonate (Os-Daniel) 500 mg PO 1700 [facility] Stop: 12/27/17 16:59 Last Admin: 10/30/17 17:15 Dose: 500 mg Cholecalciferol (Vitamin D3) 1,000 iu PO DAILY [facility] Stop: 12/27/17 08:59 Last Admin: 10/30/17 08:44 Dose: 1,000 iu Donepezil HCl (Aricept) 10 mg PO DAILY [facility] Stop: 12/27/17 08:59 Last Admin: 10/30/17 08:44 Dose: 10 mg Heparin Sodium (Porcine) (Heparin) 5,000 units SUBQ Q12HR [facility] Stop: 12/28/17 20:59 Last Admin: 10/30/17 08:45 Dose: 5,000 units Dextrose/Sodium Chloride (D5-0.45ns) 1,000 mls @ 50 mls/hr IV .Q20H [facility] Stop: 12/27/17 09:30 Last Admin: 10/30/17 06:42 Dose: 50 mls/hr Ceftriaxone Sodium 2 gm/ (Sodium Chloride) 100 mls @ 100 mls/hr IV Q24H [facility] Stop: 11/06/17 09:59 Lactobacillus Rhamnosus (Culturelle 15b) 1 each PO DAILY [facility] Stop: 12/28/17 13:59 Last Admin: 10/30/17 08:44 Dose: 1 each Lamotrigine (Lamictal) 50 mg PO BID [facility]; Protocol Stop: 12/27/17 08:59 Last Admin: 10/30/17 17:15 Dose: 50 mg Levothyroxine Sodium (Synthroid) 0.025 mg PO QDAC [facility] Stop: 12/27/17 08:59 Last Admin: 10/30/17 06:41 Dose: 0.025 mg Levothyroxine Sodium (Synthroid) 0.2 mg PO QDAC [facility] Stop: 12/27/17 08:59 Last Admin: 10/30/17 06:41 Dose: 0.2 mg Magnesium Hydroxide (Milk Of Magnesia) 30 ml PO Q72HR PRN PRN Reason: Constipation Stop: 12/27/17 08:54 Miscellaneous (Vte Chemical Prophylaxis Screen/ Admission) 1 ea PRN PRN PRN Reason: PROTOCOL Stop: 12/28/17 12:10 Miscellaneous (Probiotic Screen) 1 ea PRN PRN PRN Reason: PROTOCOL Stop: 12/28/17 12:55 Simvastatin (Zocor) 10 mg PO HS [facility]; Protocol Stop: 12/27/17 20:59 Last Admin: 10/29/17 20:46 Dose: 10 mg Internal Medicine Assmt/Plan - Assessment Assessment: acute uti with e.coli blood cx positive for e.coli UTI Dementia dm 2 hdl - Plan Plan: continue ivabx as per id continue current plan of care
--- NOTE | 2017-10-30 23:45 | Infectious Disease Prog Note ---
Infectious Disease Subjective - Review of Systems Service Date: 10/30/17 Subjective: Blood cultures grew E coli. Infectious Disease Objective - Results Result Diagrams: 10/29/17 04:50 10/29/17 04:50 Recent Labs: Laboratory Last Values WBC 5.1 Th/cmm (4.8-10.8) 10/29/17 04:50 RBC 4.79 Mil/cmm (3.80-5.10) 10/29/17 04:50 Hgb 14.6 gm/dL (12-16) 10/29/17 04:50 Hct 43.3 % (41.0-60) 10/29/17 04:50 MCV 90.4 fl (81-100) 10/29/17 04:50 MCH 30.5 pg (27.0-31.0) 10/29/17 04:50 MCHC Differential 33.7 pg (28.0-36.0) 10/29/17 04:50 RDW 13.2 % (11.5-20.0) 10/29/17 04:50 Plt Count 293 Th/cmm (150-400) 10/29/17 04:50 MPV 7.4 fl 10/29/17 04:50 Neutrophils % 53.0 % (40.0-80.0) 10/29/17 04:50 Lymphocytes % 33.0 % (20.0-50.0) 10/29/17 04:50 Monocytes % 11.0 % (2.0-10.0) H 10/29/17 04:50 Eosinophils % 1.3 % (0.0-5.0) 10/29/17 04:50 Basophils % 1.7 % (0.0-2.0) 10/29/17 04:50 PT 11.0 SECONDS (9.5-11.5) 10/28/17 02:00 INR 1.06 (0.5-1.4) 10/28/17 02:00 Sodium 138 mEq/L (136-145) 10/29/17 04:50 Potassium 3.9 mEq/L (3.5-5.1) 10/29/17 04:50 Chloride 103 mEq/L (98-107) 10/29/17 04:50 Carbon Dioxide 28.5 mEq/L (21.0-31.0) 10/29/17 04:50 Anion Gap 10.4 (7.0-16.0) 10/29/17 04:50 BUN 11 mg/dL (7-25) 10/29/17 04:50 Creatinine 0.9 mg/dL (0.6-1.2) 10/29/17 04:50 Est GFR ( Amer) > 60.0 ml/min (>90) 10/29/17 04:50 Est GFR (Non-Af Amer) > 60.0 ml/min 10/29/17 04:50 BUN/Creatinine Ratio 12.2 10/29/17 04:50 Glucose 94 mg/dL (70-105) 10/29/17 04:50 POC Glucose 112 MG/DL (70-105) H 10/30/17 05:18 Calcium 9.4 mg/dL (8.6-10.3) 10/29/17 04:50 Total Bilirubin 0.2 mg/dL (0.3-1.0) L 10/29/17 04:50 AST 15 U/L (13-39) 10/29/17 04:50 ALT 11 U/L (7-52) 10/29/17 04:50 Alkaline Phosphatase 75 U/L (34-104) 10/29/17 04:50 Troponin I 0.01 ng/mL (0.01-0.05) 10/28/17 02:00 Total Protein 7.0 gm/dL (6.0-8.3) 10/29/17 04:50 Albumin 3.6 gm/dL (3.7-5.3) L 10/29/17 04:50 Globulin 3.4 gm/dL 10/29/17 04:50 Albumin/Globulin Ratio 1.1 (1.0-1.8) 10/29/17 04:50 Triglycerides 80 mg/dL (<150) 10/28/17 09:05 Cholesterol 161 mg/dL (<200) 10/28/17 09:05 LDL Cholesterol Direct 95 mg/dL (75-193) 10/28/17 09:05 HDL Cholesterol 49 mg/dL (23-92) 10/28/17 09:05 TSH 0.14 uIU/ml (0.34-5.60) L 10/28/17 09:20 Urine Source CLEAN C 10/28/17 02:10 Urine Color YELLOW 10/28/17 02:10 Urine Clarity CLOUDY (CLEAR) H 10/28/17 02:10 Urine pH 6.5 (4.6 - 8.0) 10/28/17 02:10 Ur Specific [place] 1.020 (1.005-1.030) 10/28/17 02:10 Urine Protein TRACE mg/dL (NEGATIVE) 10/28/17 02:10 Urine Glucose (UA) NEGATIVE mg/dL (NEGATIVE) 10/28/17 02:10 Urine Ketones NEGATIVE mg/dL (NEGATIVE) 10/28/17 02:10 Urine Blood TRACE (NEGATIVE) 10/28/17 02:10 Urine Nitrate POSITIVE (NEGATIVE) H 10/28/17 02:10 Urine Bilirubin NEGATIVE (NEGATIVE) 10/28/17 02:10 Urine Urobilinogen 0.2 E.U./dL (0.2 - 1.0) 10/28/17 02:10 Ur Leukocyte Esterase SMALL (NEGATIVE) H 10/28/17 02:10 Urine RBC 0-2 /hpf (0-5) 10/28/17 02:10 Urine WBC 10-25 /hpf (0-5) H 10/28/17 02:10 Ur Epithelial Cells MODERATE /lpf (FEW) 10/28/17 02:10 Urine Bacteria MANY /hpf (NONE SEEN) H 10/28/17 02:10 - Physical Exam Vitals and I&O: Vital Signs Temp 97.0 F 10/30/17 20:00 Pulse 78 10/30/17 20:00 Resp 18 10/30/17 20:00 BP 112/59 10/30/17 20:00 Pulse Ox 97 10/30/17 20:00 Intake & Output 10/30/17 10/30/17 10/31/17 06:59 18:59 06:59 Intake Total 400 500 Balance 400 500 Weight (lbs) 58.967 kg 58.967 kg Intake: Intake, IV Amount 100 50 Piperacillin Sodium/ 100 50 Tazobact 3.375 gm In Sodium Chloride 0.9% 50 ml @ 100 mls/hr IV Q8H [facility] Rx#:[id number] Oral 300 450 Other: # Voids 3 3 # Bowel Movements 2 Weight Source Estimated Bedscale Active Medications: Current Medications Acetaminophen (Tylenol) 325 mg PO Q4HR PRN PRN Reason: Pain or Fever >101 Stop: 12/27/17 08:54 Calcium Carbonate (Os-Daniel) 500 mg PO 1700 [facility] Stop: 12/27/17 16:59 Last Admin: 10/30/17 17:15 Dose: 500 mg Cholecalciferol (Vitamin D3) 1,000 iu PO DAILY [facility] Stop: 12/27/17 08:59 Last Admin: 10/30/17 08:44 Dose: 1,000 iu Donepezil HCl (Aricept) 10 mg PO DAILY [facility] Stop: 12/27/17 08:59 Last Admin: 10/30/17 08:44 Dose: 10 mg Heparin Sodium (Porcine) (Heparin) 5,000 units SUBQ Q12HR [facility] Stop: 12/28/17 20:59 Last Admin: 10/30/17 21:19 Dose: 5,000 units Dextrose/Sodium Chloride (D5-0.45ns) 1,000 mls @ 50 mls/hr IV .Q20H [facility] Stop: 12/27/17 09:30 Last Admin: 10/30/17 06:42 Dose: 50 mls/hr Ceftriaxone Sodium 2 gm/ (Sodium Chloride) 100 mls @ 100 mls/hr IV Q24H [facility] Stop: 11/06/17 09:59 Lactobacillus Rhamnosus (Culturelle 15b) 1 each PO DAILY [facility] Stop: 12/28/17 13:59 Last Admin: 10/30/17 08:44 Dose: 1 each Lamotrigine (Lamictal) 50 mg PO BID [facility]; Protocol Stop: 12/27/17 08:59 Last Admin: 10/30/17 17:15 Dose: 50 mg Levothyroxine Sodium (Synthroid) 0.025 mg PO QDAC [facility] Stop: 12/27/17 08:59 Last Admin: 10/30/17 06:41 Dose: 0.025 mg Levothyroxine Sodium (Synthroid) 0.2 mg PO QDAC [facility] Stop: 12/27/17 08:59 Last Admin: 10/30/17 06:41 Dose: 0.2 mg Magnesium Hydroxide (Milk Of Magnesia) 30 ml PO Q72HR PRN PRN Reason: Constipation Stop: 12/27/17 08:54 Miscellaneous (Vte Chemical Prophylaxis Screen/ Admission) 1 ea PRN PRN PRN Reason: PROTOCOL Stop: 12/28/17 12:10 Miscellaneous (Probiotic Screen) 1 ea MC PRN PRN PRN Reason: PROTOCOL Stop: 12/28/17 12:55 Simvastatin (Zocor) 10 mg PO HS [facility]; Protocol Stop: 12/27/17 20:59 Last Admin: 10/30/17 21:19 Dose: 10 mg General: no acute distress, well developed, well nourished HEENT: atraumatic, normocephalic, PERRLA, EOMI Neck: supple, no thyromegaly Cardiovascular: S1S2, regular Lungs: clear to auscultation bilaterally, clear to percussion Abdomen: soft, no tender, no distended Extremities: no cyanosis, no clubbing, no edema Neurological: awake, alert, oriented Skin: intact Infectious Disease Assmt/Plan - Assessment Assessment: 1. E coli bacteremia. 2. E coli UTI 3. Dementia. 4. Diabetes mellitus type 2. 5. Hyperlipidemia. 6. Developmental delay. 7. Down syndrome. - Plan Plan: Change Zosyn to ceftriaxone for 7 more days.
[2017-10-31] MEDS: D5-0.45NS 1,000 ML IV SCH ×2 (01:10→21:50)
[2017-10-31] MEDS: Levothyroxine 0.1 Mg Tab PO SCH (07:00)
[2017-10-31] MEDS: Levothyroxine 0.025 Mg Tab PO SCH (07:00)
[2017-10-31 07:01] LABS: % BASOPHILS 2.1 % (0.0-2.0); % EOSINOPHILS 0.9 % (0.0-5.0); % LYMPHOCYTES 36.3 % (20.0-50.0); % MONOCYTES 6.8 % (2.0-10.0); % NEUTROPHILS 53.9 % (40.0-80.0); BASOPHILE ABSOLUTE 0.1 Th/cumm (0-0.2); HEMATOCRIT 43.3 % (41.0-60); HEMOGLOBIN 14.4 gm/dL (12-16); LYMPHOCYTE ABSOLUTE 1.6 Th/cmm (1.5-3.0); MEAN CELL VOLUME 90.6 fl (81-100); MEAN CORPUSCULAR HEMOGLOBIN 30.2 pg (27.0-31.0); MEAN CORPUSCULAR HGB CONC 33.3 pg (28.0-36.0); MEAN PLATELET VOLUME 7.5 fl; MONOCYTE ABSOLUTE 0.3 Th/cmm (0.3-1.0); NEUTROPHILE ABSOLUTE 2.3 Th/cmm (1.8-8.0); PLATELET COUNT 338 Th/cmm (150-400); RED BLOOD COUNT 4.78 Mil/cmm (3.80-5.10); RED CELL DISTRIBUTION WIDTH 12.7 % (11.5-20.0); WHITE BLOOD COUNT 4.3 Th/cmm (4.8-10.8)
[2017-10-31 07:08] LABS: ANION GAP 10.7 (7.0-16.0); BUN - UREA NITROGEN 11 mg/dL (7-25); CALCIUM SERUM 9.3 mg/dL (8.6-10.3); CARBON DIOXIDE 27.9 mEq/L (21.0-31.0); CHLORIDE 104 mEq/L (98-107); CREATININE - SERUM 1.1 mg/dL (0.6-1.2); GFR AFRICAN-AMERICAN > 60.0 ml/min (>90); GFR NON AFRICAN-AMERICAN 53.1 ml/min; GLUCOSE 85 mg/dL (70-105); POTASSIUM SERUM 3.6 mEq/L (3.5-5.1); SODIUM SERUM 139 mEq/L (136-145)
[2017-10-31] MEDS: Lactobacillus Rhamnosus GG 15 Billion CFU CAP.SPRINK PO SCH (09:31)
[2017-10-31] MEDS: cefTRIAXone 2 GM in Sodium Chloride 0.9% 100 ML IV SCH (09:32)
--- NOTE | 2017-10-31 12:28 | General Progress Note ---
Subjective - Review of Systems Events since last encounter: patient with e.coli tolerating antibiotics well Objective - Results Result Diagrams: 10/31/17 05:30 10/31/17 05:30 Recent Labs: Laboratory Last Values WBC 4.3 Th/cmm (4.8-10.8) L 10/31/17 05:30 RBC 4.78 Mil/cmm (3.80-5.10) 10/31/17 05:30 Hgb 14.4 gm/dL (12-16) 10/31/17 05:30 Hct 43.3 % (41.0-60) 10/31/17 05:30 MCV 90.6 fl (81-100) 10/31/17 05:30 MCH 30.2 pg (27.0-31.0) 10/31/17 05:30 MCHC Differential 33.3 pg (28.0-36.0) 10/31/17 05:30 RDW 12.7 % (11.5-20.0) 10/31/17 05:30 Plt Count 338 Th/cmm (150-400) 10/31/17 05:30 MPV 7.5 fl 10/31/17 05:30 Neutrophils % 53.9 % (40.0-80.0) 10/31/17 05:30 Lymphocytes % 36.3 % (20.0-50.0) 10/31/17 05:30 Monocytes % 6.8 % (2.0-10.0) 10/31/17 05:30 Eosinophils % 0.9 % (0.0-5.0) 10/31/17 05:30 Basophils % 2.1 % (0.0-2.0) H 10/31/17 05:30 PT 11.0 SECONDS (9.5-11.5) 10/28/17 02:00 INR 1.06 (0.5-1.4) 10/28/17 02:00 Sodium 139 mEq/L (136-145) 10/31/17 05:30 Potassium 3.6 mEq/L (3.5-5.1) 10/31/17 05:30 Chloride 104 mEq/L (98-107) 10/31/17 05:30 Carbon Dioxide 27.9 mEq/L (21.0-31.0) 10/31/17 05:30 Anion Gap 10.7 (7.0-16.0) 10/31/17 05:30 BUN 11 mg/dL (7-25) 10/31/17 05:30 Creatinine 1.1 mg/dL (0.6-1.2) 10/31/17 05:30 Est GFR ( Amer) > 60.0 ml/min (>90) 10/31/17 05:30 Est GFR (Non-Af Amer) 53.1 ml/min 10/31/17 05:30 BUN/Creatinine Ratio 10.0 10/31/17 05:30 Glucose 85 mg/dL (70-105) 10/31/17 05:30 POC Glucose 112 MG/DL (70-105) H 10/30/17 05:18 Calcium 9.3 mg/dL (8.6-10.3) 10/31/17 05:30 Total Bilirubin 0.2 mg/dL (0.3-1.0) L 10/29/17 04:50 AST 15 U/L (13-39) 10/29/17 04:50 ALT 11 U/L (7-52) 10/29/17 04:50 Alkaline Phosphatase 75 U/L (34-104) 10/29/17 04:50 Troponin I 0.01 ng/mL (0.01-0.05) 10/28/17 02:00 Total Protein 7.0 gm/dL (6.0-8.3) 10/29/17 04:50 Albumin 3.6 gm/dL (3.7-5.3) L 10/29/17 04:50 Globulin 3.4 gm/dL 10/29/17 04:50 Albumin/Globulin Ratio 1.1 (1.0-1.8) 10/29/17 04:50 Triglycerides 80 mg/dL (<150) 10/28/17 09:05 Cholesterol 161 mg/dL (<200) 10/28/17 09:05 LDL Cholesterol Direct 95 mg/dL (75-193) 10/28/17 09:05 HDL Cholesterol 49 mg/dL (23-92) 10/28/17 09:05 TSH 0.14 uIU/ml (0.34-5.60) L 10/28/17 09:20 Urine Source CLEAN C 10/28/17 02:10 Urine Color YELLOW 10/28/17 02:10 Urine Clarity CLOUDY (CLEAR) H 10/28/17 02:10 Urine pH 6.5 (4.6 - 8.0) 10/28/17 02:10 Ur Specific [place] 1.020 (1.005-1.030) 10/28/17 02:10 Urine Protein TRACE mg/dL (NEGATIVE) 10/28/17 02:10 Urine Glucose (UA) NEGATIVE mg/dL (NEGATIVE) 10/28/17 02:10 Urine Ketones NEGATIVE mg/dL (NEGATIVE) 10/28/17 02:10 Urine Blood TRACE (NEGATIVE) 10/28/17 02:10 Urine Nitrate POSITIVE (NEGATIVE) H 10/28/17 02:10 Urine Bilirubin NEGATIVE (NEGATIVE) 10/28/17 02:10 Urine Urobilinogen 0.2 E.U./dL (0.2 - 1.0) 10/28/17 02:10 Ur Leukocyte Esterase SMALL (NEGATIVE) H 10/28/17 02:10 Urine RBC 0-2 /hpf (0-5) 10/28/17 02:10 Urine WBC 10-25 /hpf (0-5) H 10/28/17 02:10 Ur Epithelial Cells MODERATE /lpf (FEW) 10/28/17 02:10 Urine Bacteria MANY /hpf (NONE SEEN) H 10/28/17 02:10 - Physical Exam Vitals and I&O: Vital Signs Temp 96.5 F 10/31/17 11:37 Pulse 63 10/31/17 11:37 Resp 18 10/31/17 11:37 BP 116/69 10/31/17 11:37 Pulse Ox 98 10/31/17 11:37 Intake & Output 10/30/17 10/31/17 10/31/17 18:59 06:59 18:59 Intake Total 500 923.333 Balance 500 923.333 Weight (lbs) 58.967 kg 62.278 kg Intake: Intake, IV Amount 50 923.333 D5-0.45NS 1,000 ml @ 50 923.333 mls/hr IV .Q20H [facility] Rx#: [id number] Piperacillin Sodium/ 50 Tazobact 3.375 gm In Sodium Chloride 0.9% 50 ml @ 100 mls/hr IV Q8H [facility] Rx#:[id number] Oral 450 Other: # Voids 3 0 # Bowel Movements 2 Weight Source Bedscale Bedscale Active Medications: Current Medications Acetaminophen (Tylenol) 325 mg PO Q4HR PRN PRN Reason: Pain or Fever >101 Stop: 12/27/17 08:54 Calcium Carbonate (Os-Daniel) 500 mg PO 1700 [facility] Stop: 12/27/17 16:59 Last Admin: 10/30/17 17:15 Dose: 500 mg Cholecalciferol (Vitamin D3) 1,000 iu PO DAILY [facility] [place] Stop: 12/27/17 08:59 Last Admin: 10/31/17 09:30 Dose: 1,000 iu Donepezil HCl (Aricept) 10 mg PO DAILY [facility] [place] Stop: 12/27/17 08:59 Last Admin: 10/31/17 09:30 Dose: 10 mg Heparin Sodium (Porcine) (Heparin) 5,000 units SUBQ Q12HR [facility] [place] Stop: 12/28/17 20:59 Last Admin: 10/31/17 09:31 Dose: 5,000 units Dextrose/Sodium Chloride (D5-0.45ns) 1,000 mls @ 50 mls/hr IV .Q20H [facility] [place] Stop: 12/27/17 09:30 Last Admin: 10/31/17 01:10 Dose: 50 mls/hr Ceftriaxone Sodium 2 gm/ (Sodium Chloride) 100 mls @ 100 mls/hr IV Q24H [facility] [place] Stop: 11/06/17 09:59 Last Admin: 10/31/17 09:32 Dose: 100 mls/hr Lactobacillus Rhamnosus (Culturelle 15b) 1 each PO DAILY [facility] [place] Stop: 12/28/17 13:59 Last Admin: 10/31/17 09:31 Dose: 1 each Lamotrigine (Lamictal) 50 mg PO BID [facility] [place]; Protocol Stop: 12/27/17 08:59 Last Admin: 10/31/17 09:30 Dose: 50 mg Levothyroxine Sodium (Synthroid) 0.025 mg PO QDAC [facility] [place] Stop: 12/27/17 08:59 Last Admin: 10/31/17 07:00 Dose: 0.025 mg Levothyroxine Sodium (Synthroid) 0.2 mg PO QDAC [facility] [place] Stop: 12/27/17 08:59 Last Admin: 10/31/17 07:00 Dose: 0.2 mg Magnesium Hydroxide (Milk Of Magnesia) 30 ml PO Q72HR PRN PRN Reason: Constipation Stop: 12/27/17 08:54 Miscellaneous (Vte Chemical Prophylaxis Screen/ Admission) 1 ea [facility] PRN PRN PRN Reason: PROTOCOL Stop: 12/28/17 12:10 Miscellaneous (Probiotic Screen) 1 ea [facility] PRN PRN PRN Reason: PROTOCOL Stop: 12/28/17 12:55 Simvastatin (Zocor) 10 mg PO HS [facility]; Protocol Stop: 12/27/17 20:59 Last Admin: 10/30/17 21:19 Dose: 10 mg General: No acute distress HEENT: Atraumatic, PERRLA Neck: Supple Cardiovascular: Regular rate, Normal S1, Normal S2 Lungs: Clear to auscultation Abdomen: Bowel sounds Assessment/Plan - Problem List Patient Problems: All Active Problems Dementia (Acute) F03.90 Diabetes (Acute) E11.9 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 coli UTI (Acute) N39.0, B96.20 Hyperlipidemia (Acute) E78.5 developmental delay (Acute) - Plan Plan: as per order sheet
--- NOTE | 2017-11-01 02:15 | Infectious Disease Prog Note ---
Infectious Disease Subjective - Review of Systems Service Date: 11/01/17 Subjective: No fever. Infectious Disease Objective - Results Result Diagrams: 10/31/17 05:30 10/31/17 05:30 Recent Labs: Laboratory Last Values WBC 4.3 Th/cmm (4.8-10.8) L 10/31/17 05:30 RBC 4.78 Mil/cmm (3.80-5.10) 10/31/17 05:30 Hgb 14.4 gm/dL (12-16) 10/31/17 05:30 Hct 43.3 % (41.0-60) 10/31/17 05:30 MCV 90.6 fl (81-100) 10/31/17 05:30 MCH 30.2 pg (27.0-31.0) 10/31/17 05:30 MCHC Differential 33.3 pg (28.0-36.0) 10/31/17 05:30 RDW 12.7 % (11.5-20.0) 10/31/17 05:30 Plt Count 338 Th/cmm (150-400) 10/31/17 05:30 MPV 7.5 fl 10/31/17 05:30 Neutrophils % 53.9 % (40.0-80.0) 10/31/17 05:30 Lymphocytes % 36.3 % (20.0-50.0) 10/31/17 05:30 Monocytes % 6.8 % (2.0-10.0) 10/31/17 05:30 Eosinophils % 0.9 % (0.0-5.0) 10/31/17 05:30 Basophils % 2.1 % (0.0-2.0) H 10/31/17 05:30 PT 11.0 SECONDS (9.5-11.5) 10/28/17 02:00 INR 1.06 (0.5-1.4) 10/28/17 02:00 Sodium 139 mEq/L (136-145) 10/31/17 05:30 Potassium 3.6 mEq/L (3.5-5.1) 10/31/17 05:30 Chloride 104 mEq/L (98-107) 10/31/17 05:30 Carbon Dioxide 27.9 mEq/L (21.0-31.0) 10/31/17 05:30 Anion Gap 10.7 (7.0-16.0) 10/31/17 05:30 BUN 11 mg/dL (7-25) 10/31/17 05:30 Creatinine 1.1 mg/dL (0.6-1.2) 10/31/17 05:30 Est GFR ( Amer) > 60.0 ml/min (>90) 10/31/17 05:30 Est GFR (Non-Af Amer) 53.1 ml/min 10/31/17 05:30 BUN/Creatinine Ratio 10.0 10/31/17 05:30 Glucose 85 mg/dL (70-105) 10/31/17 05:30 POC Glucose 112 MG/DL (70-105) H 10/30/17 05:18 Calcium 9.3 mg/dL (8.6-10.3) 10/31/17 05:30 Total Bilirubin 0.2 mg/dL (0.3-1.0) L 10/29/17 04:50 AST 15 U/L (13-39) 10/29/17 04:50 ALT 11 U/L (7-52) 10/29/17 04:50 Alkaline Phosphatase 75 U/L (34-104) 10/29/17 04:50 Troponin I 0.01 ng/mL (0.01-0.05) 10/28/17 02:00 Total Protein 7.0 gm/dL (6.0-8.3) 10/29/17 04:50 Albumin 3.6 gm/dL (3.7-5.3) L 10/29/17 04:50 Globulin 3.4 gm/dL 10/29/17 04:50 Albumin/Globulin Ratio 1.1 (1.0-1.8) 10/29/17 04:50 Triglycerides 80 mg/dL (<150) 10/28/17 09:05 Cholesterol 161 mg/dL (<200) 10/28/17 09:05 LDL Cholesterol Direct 95 mg/dL (75-193) 10/28/17 09:05 HDL Cholesterol 49 mg/dL (23-92) 10/28/17 09:05 TSH 0.14 uIU/ml (0.34-5.60) L 10/28/17 09:20 Urine Source CLEAN C 10/28/17 02:10 Urine Color YELLOW 10/28/17 02:10 Urine Clarity CLOUDY (CLEAR) H 10/28/17 02:10 Urine pH 6.5 (4.6 - 8.0) 10/28/17 02:10 Ur Specific [place] 1.020 (1.005-1.030) 10/28/17 02:10 Urine Protein TRACE mg/dL (NEGATIVE) 10/28/17 02:10 Urine Glucose (UA) NEGATIVE mg/dL (NEGATIVE) 10/28/17 02:10 Urine Ketones NEGATIVE mg/dL (NEGATIVE) 10/28/17 02:10 Urine Blood TRACE (NEGATIVE) 10/28/17 02:10 Urine Nitrate POSITIVE (NEGATIVE) H 10/28/17 02:10 Urine Bilirubin NEGATIVE (NEGATIVE) 10/28/17 02:10 Urine Urobilinogen 0.2 E.U./dL (0.2 - 1.0) 10/28/17 02:10 Ur Leukocyte Esterase SMALL (NEGATIVE) H 10/28/17 02:10 Urine RBC 0-2 /hpf (0-5) 10/28/17 02:10 Urine WBC 10-25 /hpf (0-5) H 10/28/17 02:10 Ur Epithelial Cells MODERATE /lpf (FEW) 10/28/17 02:10 Urine Bacteria MANY /hpf (NONE SEEN) H 10/28/17 02:10 - Physical Exam Vitals and I&O: Vital Signs Temp 96.8 F 10/31/17 19:00 Pulse 92 10/31/17 19:00 Resp 18 10/31/17 19:00 BP 110/73 10/31/17 19:00 Pulse Ox 95 10/31/17 19:00 Intake & Output 10/31/17 10/31/17 11/01/17 06:59 18:59 06:59 Intake Total 161.142 6921 1000 Balance 224.470 0722 1000 Weight (lbs) 62.278 kg 62.278 kg Intake: Intake, IV Amount 923.473 218 2595 D5-0.45NS 1,000 ml @ 50 002.645 6869 mls/hr IV .Q20H [facility] Rx#: [id number] cefTRIAXone 2 gm In 100 Sodium Chloride 0.9% 100 ml @ 100 mls/hr IV Q24H [facility] Rx#:[id number] Oral 900 Other: # Voids 0 3 # Bowel Movements 0 Weight Source Bedscale Bedscale Active Medications: Current Medications Acetaminophen (Tylenol) 325 mg PO Q4HR PRN PRN Reason: Pain or Fever >101 Stop: 12/27/17 08:54 Calcium Carbonate (Os-Daniel) 500 mg PO 1700 [facility] Stop: 12/27/17 16:59 Last Admin: 10/31/17 16:54 Dose: 500 mg Cholecalciferol (Vitamin D3) 1,000 iu PO DAILY [facility] Stop: 12/27/17 08:59 Last Admin: 10/31/17 09:30 Dose: 1,000 iu Donepezil HCl (Aricept) 10 mg PO DAILY [facility] Stop: 12/27/17 08:59 Last Admin: 10/31/17 09:30 Dose: 10 mg Heparin Sodium (Porcine) (Heparin) 5,000 units SUBQ Q12HR [facility] Stop: 12/28/17 20:59 Last Admin: 10/31/17 21:33 Dose: 5,000 units Dextrose/Sodium Chloride (D5-0.45ns) 1,000 mls @ 50 mls/hr IV .Q20H [facility] Stop: 12/27/17 09:30 Last Admin: 10/31/17 21:50 Dose: 50 mls/hr Ceftriaxone Sodium 2 gm/ (Sodium Chloride) 100 mls @ 100 mls/hr IV Q24H [facility] Stop: 11/06/17 09:59 Last Infusion: 10/31/17 10:32 Dose: Infused Lactobacillus Rhamnosus (Culturelle 15b) 1 each PO DAILY [facility] Stop: 12/28/17 13:59 Last Admin: 10/31/17 09:31 Dose: 1 each Lamotrigine (Lamictal) 50 mg PO BID [facility]; Protocol Stop: 12/27/17 08:59 Last Admin: 10/31/17 16:54 Dose: 50 mg Levothyroxine Sodium (Synthroid) 0.025 mg PO QDAC [facility] Stop: 12/27/17 08:59 Last Admin: 10/31/17 07:00 Dose: 0.025 mg Levothyroxine Sodium (Synthroid) 0.2 mg PO QDAC [facility] Stop: 12/27/17 08:59 Last Admin: 10/31/17 07:00 Dose: 0.2 mg Magnesium Hydroxide (Milk Of Magnesia) 30 ml PO Q72HR PRN PRN Reason: Constipation Stop: 12/27/17 08:54 Miscellaneous (Vte Chemical Prophylaxis Screen/ Admission) 1 ea [facility] PRN PRN PRN Reason: PROTOCOL Stop: 12/28/17 12:10 Miscellaneous (Probiotic Screen) 1 ea MC PRN PRN PRN Reason: PROTOCOL Stop: 12/28/17 12:55 Simvastatin (Zocor) 10 mg PO HS [facility]; Protocol Stop: 12/27/17 20:59 Last Admin: 10/31/17 21:32 Dose: 10 mg General: no acute distress, well developed, well nourished HEENT: atraumatic, normocephalic, PERRLA, EOMI Neck: supple, thyromegaly, lymphadenopathy Cardiovascular: S1S2, regular Lungs: clear to auscultation bilaterally, clear to percussion Abdomen: soft, no tender, no distended, no mass Extremities: no cyanosis, no clubbing, no edema Neurological: awake, alert Skin: intact Infectious Disease Assmt/Plan - Problem List Patient Problems: All Active Problems Dementia (Acute) F03.90 Diabetes (Acute) E11.9 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 coli UTI (Acute) N39.0, B96.20 Hyperlipidemia (Acute) E78.5 developmental delay (Acute) - Assessment Assessment: 1. E coli bacteremia. 2. E coli UTI 3. Dementia. 4. Diabetes mellitus type 2. 5. Hyperlipidemia. 6. Developmental delay. 7. Down syndrome. - Plan Plan: Change Zosyn to ceftriaxone for 6 more days.
[2017-11-01] MEDS: Levothyroxine 0.025 Mg Tab PO SCH (09:13)
[2017-11-01] MEDS: Lactobacillus Rhamnosus GG 15 Billion CFU CAP.SPRINK PO SCH (09:13)
[2017-11-01] MEDS: Levothyroxine 0.1 Mg Tab PO SCH (09:13)
[2017-11-01] MEDS: cefTRIAXone 2 GM in Sodium Chloride 0.9% 100 ML IV SCH (09:26)
--- NOTE | 2017-11-01 10:09 | General Progress Note ---
Subjective - Review of Systems Events since last encounter: no fever no distress Objective - Results Result Diagrams: 10/31/17 05:30 10/31/17 05:30 Recent Labs: Laboratory Last Values WBC 4.3 Th/cmm (4.8-10.8) L 10/31/17 05:30 RBC 4.78 Mil/cmm (3.80-5.10) 10/31/17 05:30 Hgb 14.4 gm/dL (12-16) 10/31/17 05:30 Hct 43.3 % (41.0-60) 10/31/17 05:30 MCV 90.6 fl (81-100) 10/31/17 05:30 MCH 30.2 pg (27.0-31.0) 10/31/17 05:30 MCHC Differential 33.3 pg (28.0-36.0) 10/31/17 05:30 RDW 12.7 % (11.5-20.0) 10/31/17 05:30 Plt Count 338 Th/cmm (150-400) 10/31/17 05:30 MPV 7.5 fl 10/31/17 05:30 Neutrophils % 53.9 % (40.0-80.0) 10/31/17 05:30 Lymphocytes % 36.3 % (20.0-50.0) 10/31/17 05:30 Monocytes % 6.8 % (2.0-10.0) 10/31/17 05:30 Eosinophils % 0.9 % (0.0-5.0) 10/31/17 05:30 Basophils % 2.1 % (0.0-2.0) H 10/31/17 05:30 PT 11.0 SECONDS (9.5-11.5) 10/28/17 02:00 INR 1.06 (0.5-1.4) 10/28/17 02:00 Sodium 139 mEq/L (136-145) 10/31/17 05:30 Potassium 3.6 mEq/L (3.5-5.1) 10/31/17 05:30 Chloride 104 mEq/L (98-107) 10/31/17 05:30 Carbon Dioxide 27.9 mEq/L (21.0-31.0) 10/31/17 05:30 Anion Gap 10.7 (7.0-16.0) 10/31/17 05:30 BUN 11 mg/dL (7-25) 10/31/17 05:30 Creatinine 1.1 mg/dL (0.6-1.2) 10/31/17 05:30 Est GFR ( Amer) > 60.0 ml/min (>90) 10/31/17 05:30 Est GFR (Non-Af Amer) 53.1 ml/min 10/31/17 05:30 BUN/Creatinine Ratio 10.0 10/31/17 05:30 Glucose 85 mg/dL (70-105) 10/31/17 05:30 POC Glucose 112 MG/DL (70-105) H 10/30/17 05:18 Calcium 9.3 mg/dL (8.6-10.3) 10/31/17 05:30 Total Bilirubin 0.2 mg/dL (0.3-1.0) L 10/29/17 04:50 AST 15 U/L (13-39) 10/29/17 04:50 ALT 11 U/L (7-52) 10/29/17 04:50 Alkaline Phosphatase 75 U/L (34-104) 10/29/17 04:50 Troponin I 0.01 ng/mL (0.01-0.05) 10/28/17 02:00 Total Protein 7.0 gm/dL (6.0-8.3) 10/29/17 04:50 Albumin 3.6 gm/dL (3.7-5.3) L 10/29/17 04:50 Globulin 3.4 gm/dL 10/29/17 04:50 Albumin/Globulin Ratio 1.1 (1.0-1.8) 10/29/17 04:50 Triglycerides 80 mg/dL (<150) 10/28/17 09:05 Cholesterol 161 mg/dL (<200) 10/28/17 09:05 LDL Cholesterol Direct 95 mg/dL (75-193) 10/28/17 09:05 HDL Cholesterol 49 mg/dL (23-92) 10/28/17 09:05 TSH 0.14 uIU/ml (0.34-5.60) L 10/28/17 09:20 Urine Source CLEAN C 10/28/17 02:10 Urine Color YELLOW 10/28/17 02:10 Urine Clarity CLOUDY (CLEAR) H 10/28/17 02:10 Urine pH 6.5 (4.6 - 8.0) 10/28/17 02:10 Ur Specific [place] 1.020 (1.005-1.030) 10/28/17 02:10 Urine Protein TRACE mg/dL (NEGATIVE) 10/28/17 02:10 Urine Glucose (UA) NEGATIVE mg/dL (NEGATIVE) 10/28/17 02:10 Urine Ketones NEGATIVE mg/dL (NEGATIVE) 10/28/17 02:10 Urine Blood TRACE (NEGATIVE) 10/28/17 02:10 Urine Nitrate POSITIVE (NEGATIVE) H 10/28/17 02:10 Urine Bilirubin NEGATIVE (NEGATIVE) 10/28/17 02:10 Urine Urobilinogen 0.2 E.U./dL (0.2 - 1.0) 10/28/17 02:10 Ur Leukocyte Esterase SMALL (NEGATIVE) H 10/28/17 02:10 Urine RBC 0-2 /hpf (0-5) 10/28/17 02:10 Urine WBC 10-25 /hpf (0-5) H 10/28/17 02:10 Ur Epithelial Cells MODERATE /lpf (FEW) 10/28/17 02:10 Urine Bacteria MANY /hpf (NONE SEEN) H 10/28/17 02:10 - Physical Exam Vitals and I&O: Vital Signs Temp 98.4 F 11/01/17 08:00 Pulse 61 11/01/17 08:00 Resp 18 11/01/17 08:00 BP 133/82 11/01/17 08:00 Pulse Ox 93 11/01/17 08:00 Intake & Output 10/31/17 11/01/17 11/01/17 18:59 06:59 18:59 Intake Total 1000 1000 Balance 1000 1000 Weight (lbs) 62.278 kg Intake: Intake, IV Amount 100 1000 D5-0.45NS 1,000 ml @ 50 1000 mls/hr IV .Q20H [facility] Rx#: [id number] cefTRIAXone 2 gm In 100 Sodium Chloride 0.9% 100 ml @ 100 mls/hr IV Q24H [facility] Rx#:[id number] Oral 900 Other: # Voids 3 # Bowel Movements 0 Weight Source Bedscale Active Medications: Current Medications Acetaminophen (Tylenol) 325 mg PO Q4HR PRN PRN Reason: Pain or Fever >101 Stop: 12/27/17 08:54 Calcium Carbonate (Os-Daniel) 500 mg PO 1700 [facility] Stop: 12/27/17 16:59 Last Admin: 10/31/17 16:54 Dose: 500 mg Cholecalciferol (Vitamin D3) 1,000 iu PO DAILY [facility] Stop: 12/27/17 08:59 Last Admin: 11/01/17 09:13 Dose: 1,000 iu Donepezil HCl (Aricept) 10 mg PO DAILY [facility] Stop: 12/27/17 08:59 Last Admin: 11/01/17 09:14 Dose: 10 mg Heparin Sodium (Porcine) (Heparin) 5,000 units SUBQ Q12HR [facility] Stop: 12/28/17 20:59 Last Admin: 11/01/17 09:14 Dose: 5,000 units Dextrose/Sodium Chloride (D5-0.45ns) 1,000 mls @ 50 mls/hr IV .Q20H [facility] Stop: 12/27/17 09:30 Last Admin: 10/31/17 21:50 Dose: 50 mls/hr Ceftriaxone Sodium 2 gm/ (Sodium Chloride) 100 mls @ 100 mls/hr IV Q24H [facility] Stop: 11/06/17 09:59 Last Admin: 11/01/17 09:26 Dose: 100 mls/hr Lactobacillus Rhamnosus (Culturelle 15b) 1 each PO DAILY [facility] Stop: 12/28/17 13:59 Last Admin: 11/01/17 09:13 Dose: 1 each Lamotrigine (Lamictal) 50 mg PO BID [facility]; Protocol Stop: 12/27/17 08:59 Last Admin: 11/01/17 09:13 Dose: 50 mg Levothyroxine Sodium (Synthroid) 0.025 mg PO QDAC [facility] Stop: 12/27/17 08:59 Last Admin: 11/01/17 09:13 Dose: 0.025 mg Levothyroxine Sodium (Synthroid) 0.2 mg PO QDAC [facility] Stop: 12/27/17 08:59 Last Admin: 11/01/17 09:13 Dose: 0.2 mg Magnesium Hydroxide (Milk Of Magnesia) 30 ml PO Q72HR PRN PRN Reason: Constipation Stop: 12/27/17 08:54 Miscellaneous (Vte Chemical Prophylaxis Screen/ Admission) 1 ea [facility] PRN PRN PRN Reason: PROTOCOL Stop: 12/28/17 12:10 Miscellaneous (Probiotic Screen) 1 ea MC PRN PRN PRN Reason: PROTOCOL Stop: 12/28/17 12:55 Simvastatin (Zocor) 10 mg PO HS [facility]; Protocol Stop: 12/27/17 20:59 Last Admin: 10/31/17 21:32 Dose: 10 mg General: No acute distress HEENT: Atraumatic, PERRLA Neck: Supple Cardiovascular: Regular rate, Normal S1, Normal S2 Lungs: Clear to auscultation Abdomen: Bowel sounds Assessment/Plan - Problem List Patient Problems: All Active Problems Dementia (Acute) F03.90 Diabetes (Acute) E11.9 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 coli UTI (Acute) N39.0, B96.20 Hyperlipidemia (Acute) E78.5 developmental delay (Acute) - Plan Plan: as per order sheet
[2017-11-01] MEDS: D5-0.45NS 1,000 ML IV SCH (16:41)
--- NOTE | 2017-11-12 23:17 | Discharge Summary ---
DATE OF DISCHARGE: 11/01/2017 The patient was discharged on 11/01/2017 to [facility]. This patient was admitted for a urinary infection, fever, sepsis, and history of hyperlipidemia, history of hypothyroidism, and the patient known to have a history of ____. The patient was admitted and was given IV antibiotic. The patient improved. The patient was in stable condition on 11/01/2017, and was discharge to [facility] with IV antibiotic therapy and also I will be following. The patient's condition at time of discharge was stable. JOB# [id number]
== END 2017-11-01 19:55 | DRG 871 ==
LOC: ER 01:32 → MSI 08:26
PROVIDERS: ADMIT Internal Medicine; ATTEND Internal Medicine
DX: A41.9 Sepsis, unspecified organism (principal); R53.2 Functional quadriplegia; N39.0 Urinary tract infection, site not specified; F72 Severe intellectual disabilities; E78.5 Hyperlipidemia, unspecified; E03.9 Hypothyroidism, unspecified; F03.90 Unspecified dementia, unspecified severity, without behavioral disturbance, psychotic disturbance, mood disturbance, and anxiety; Q90.9 Down syndrome, unspecified; B96.20 Unspecified Escherichia coli [E. coli] as the cause of diseases classified elsewhere; L21.9 Seborrheic dermatitis, unspecified; E55.9 Vitamin D deficiency, unspecified; G40.909 Epilepsy, unspecified, not intractable, without status epilepticus; R62.50 Unspecified lack of expected normal physiological development in childhood
CPT/HCPCS: 36415-UA; 71045-TC; 76770-TC; 80048-TC; 80053-TC; 80061-TC; 81001-TC; 82948-90; 84443-TC; 84484-TC; 85025-TC; 85610-TC; 87086-90; 93005; 96374; J0696; J1644; J1956; J2543; Z7610

== ENCOUNTER 2017-11-09 15:49 | Inpatient (IN) | payer MEDICARE, MEDICAID ==
[2017-11-09] MEDS ORDERED: Sodium Chloride 0.9% 1,000 ML IV ONE ×2 (16:08→19:33)
--- NOTE | 2017-11-09 16:16 | ED Physician Chart ---
ED Chief Complaint/HPI - Patient Information Date Seen:: 11/09/17 Time Seen:: 16:10 Chief Complaint:: hyotension History of Present Illness:: 62 yr old female from [facility] for hypotension pt with downs syndrome unable to verbalize Allergies:: Allergies Allergy/AdvReac Type Severity Reaction Status Date / Time No Known Allergies Allergy Verified 10/28/17 01:46 ED Review of Systems - Review of Systems General/Constitutional: No chills Skin: No skin lesions Head: No headache Eyes: No loss of vision ENT: No earache Neck: No neck pain Cardio Vascular: No chest pain Pulmonary: No SOB, Cough GI: No vomiting Musculoskeletal: No bone or joint pain Endocrine: No polyuria Psychiatric: No prior psych history Hematopoietic: No bruising Neurological: No syncope ED Past Medical History - Past Medical History Past Medical History: Other (downs syndrome) Family Medical History - Family Member Mother History Unknown: Yes ED Physical Exam - Physical Examination General/Constitutional: Well-developed, well-nourished, Alert Head: Atraumatic Eyes: Lids, conjuctiva normal Skin: No rash ENMT: External ears, nose nl Neck: Nontender Cardio Vascular: No murmur, gallop, rubs (crackles congestion gurgling sounds) ED Septic Shock - . Is Septic Shock (SBP<90, OR Lactate>4 mmol\L) present?: No ED Reassessment (Disposition) - Reassessment Reassessment Condition:: Unchanged - Diagnosis Diagnosis:: hypotension r/o sepsis sepsis w/u - Patient Disposition Discharge/Transfer:: Acute Care w/in this hosp Condition at Disposition:: Stable
[2017-11-09 16:41] LABS: % EOSINOPHILS 1.2 % (0.0-5.0); % LYMPHOCYTES 31.8 % (20.0-50.0); % MONOCYTES 4.9 % (2.0-10.0); % NEUTROPHILS 61.1 % (40.0-80.0); BASOPHILE ABSOLUTE 0.1 Th/cumm (0-0.2); EOSINOPHILE ABSOLUTE 0.1 Th/cmm (0.1-0.4); HEMATOCRIT 47.6 % (41.0-60); HEMOGLOBIN 15.4 gm/dL (12-16); LYMPHOCYTE ABSOLUTE 2.1 Th/cmm (1.5-3.0); MEAN CELL VOLUME 90.2 fl (81-100); MEAN CORPUSCULAR HEMOGLOBIN 29.2 pg (27.0-31.0); MEAN CORPUSCULAR HGB CONC 32.4 pg (28.0-36.0); MEAN PLATELET VOLUME 7.7 fl; MONOCYTE ABSOLUTE 0.3 Th/cmm (0.3-1.0); PLATELET COUNT 342 Th/cmm (150-400); RED BLOOD COUNT 5.28 Mil/cmm (3.80-5.10); RED CELL DISTRIBUTION WIDTH 13.7 % (11.5-20.0); WHITE BLOOD COUNT 6.6 Th/cmm (4.8-10.8)
[2017-11-09 16:58] LABS: ALB/GLOB RATIO 0.9 (1.0-1.8); ALBUMIN 3.8 gm/dL (3.7-5.3); ALKALINE PHOSPHATASE 86 U/L (34-104); ANION GAP 11.9 (7.0-16.0); BILIRUBIN,TOTAL 0.4 mg/dL (0.3-1.0); BUN - UREA NITROGEN 20 mg/dL (7-25); CALCIUM SERUM 9.5 mg/dL (8.6-10.3); CARBON DIOXIDE 27.4 mEq/L (21.0-31.0); CHLORIDE 105 mEq/L (98-107); CREATININE - SERUM 0.9 mg/dL (0.6-1.2); GFR AFRICAN-AMERICAN > 60.0 ml/min (>90); GFR NON AFRICAN-AMERICAN > 60.0 ml/min; GLUCOSE 95 mg/dL (70-105); POTASSIUM SERUM 4.3 mEq/L (3.5-5.1); SGOT 21 U/L (13-39); SGPT/ALT 27 U/L (7-52); SODIUM SERUM 140 mEq/L (136-145); TOTAL PROTEIN,SERUM 7.9 gm/dL (6.0-8.3)
[2017-11-09 17:44] LABS: URINE SOURCE CLEAN C
[2017-11-09 17:46] LABS: URINE BILIRUBIN NEGATIVE (NEGATIVE); URINE BLOOD TRACE (NEGATIVE); URINE GLUCOSE (UA) NEGATIVE (NEGATIVE); URINE KETONE NEGATIVE (NEGATIVE); URINE LEUKOCYTE ESTERASE NEGATIVE (NEGATIVE); URINE MICROSCOPIC INDICATED? YES; URINE NITRATE NEGATIVE (NEGATIVE); URINE PROTEIN NEGATIVE (NEGATIVE); URINE UROBILINOGEN 0.2 E.U./dL (0.2 - 1.0)
[2017-11-09 17:47] LABS: URINE CLARITY CLEAR (CLEAR); URINE COLOR YELLOW
[2017-11-09 17:56] LABS: URINE EPITHELIAL CELLS FEW /lpf (FEW); URINE WBC 0-2 /hpf (0-5)
[2017-11-09 17:57] LABS: URINE BACTERIA FEW /hpf (NONE SEEN)
[2017-11-09] MEDS ORDERED: Lactated Ringer 1,000 ML IV ONE (19:31)
[2017-11-09] MEDS ORDERED: cefTRIAXone 1 GM in Sodium Chloride 0.9% 50 ML IV ONE (19:32)
[2017-11-09 20:53] VITALS: BP 107/59
[2017-11-09] MEDS ORDERED: Sodium Chloride 0.9% 1,000 ML IV SCH (21:17)
[2017-11-10 05:58] LABS: % BASOPHILS 2.2 % (0.0-2.0); % EOSINOPHILS 1.9 % (0.0-5.0); % LYMPHOCYTES 37.6 % (20.0-50.0); % MONOCYTES 7.1 % (2.0-10.0); % NEUTROPHILS 51.2 % (40.0-80.0); BASOPHILE ABSOLUTE 0.1 Th/cumm (0-0.2); EOSINOPHILE ABSOLUTE 0.1 Th/cmm (0.1-0.4); HEMOGLOBIN 13.1 gm/dL (12-16); LYMPHOCYTE ABSOLUTE 2.2 Th/cmm (1.5-3.0); MEAN CELL VOLUME 90.3 fl (81-100); MEAN CORPUSCULAR HEMOGLOBIN 29.6 pg (27.0-31.0); MEAN CORPUSCULAR HGB CONC 32.8 pg (28.0-36.0); MEAN PLATELET VOLUME 7.8 fl; MONOCYTE ABSOLUTE 0.4 Th/cmm (0.3-1.0); PLATELET COUNT 354 Th/cmm (150-400); RED BLOOD COUNT 4.41 Mil/cmm (3.80-5.10); RED CELL DISTRIBUTION WIDTH 13.4 % (11.5-20.0); WHITE BLOOD COUNT 5.8 Th/cmm (4.8-10.8)
[2017-11-10 06:01] LABS: HEMATOCRIT 39.8 % (41.0-60)
[2017-11-10 06:14] LABS: ALB/GLOB RATIO 0.9 (1.0-1.8); ALBUMIN 2.9 gm/dL (3.7-5.3); ALKALINE PHOSPHATASE 63 U/L (34-104); BILIRUBIN,TOTAL 0.3 mg/dL (0.3-1.0); BUN - UREA NITROGEN 14 mg/dL (7-25); CALCIUM SERUM 8.7 mg/dL (8.6-10.3); CARBON DIOXIDE 25.8 mEq/L (21.0-31.0); CHLORIDE 106 mEq/L (98-107); CREATININE - SERUM 0.7 mg/dL (0.6-1.2); GFR AFRICAN-AMERICAN > 60.0 ml/min (>90); GFR NON AFRICAN-AMERICAN > 60.0 ml/min; GLUCOSE 89 mg/dL (70-105); POTASSIUM SERUM 3.8 mEq/L (3.5-5.1); SGOT 18 U/L (13-39); SGPT/ALT 26 U/L (7-52); SODIUM SERUM 137 mEq/L (136-145); TOTAL PROTEIN,SERUM 6.2 gm/dL (6.0-8.3)
--- NOTE | 2017-11-10 09:33 | Diagnostic Imaging Report ---
Portable chest x-ray Time: 1621 History: Shortness of breath Allowing for portable technique the heart size is normal. No focal pulmonary parenchymal processes. No hilar or mediastinal abnormalities. Impression: No acute abnormalities.
--- NOTE | 2017-11-10 16:44 | History & Physical ---
ADMIT DATE: 11/09/2017 CHIEF COMPLAINT: Hypotension. The history and physical was done on behalf of Dr. Michaels. HISTORY OF PRESENT ILLNESS: The patient is a 62-year-old female with past medical history of dementia, Down syndrome, hypothyroidism, developmental delay, hyperlipidemia, seizure disorder, vitamin D deficiency, was brought in from nursing facility as the patient had hypotension. As per the records, the patient's blood pressure went to the 90s, so she was sent to the ER for further evaluation and management. On initial evaluation in the ER, the patient was afebrile with a temperature 98.2 degrees Fahrenheit, pulse 72, respiration 18, blood pressure 111/72. Lab work was also done significant WBC count 6600, hemoglobin 15.4, platelets are 342,000, creatinine 0.9. Urinalysis negative nitrite, negative leukoesterase. So, the patient was admitted for monitoring. So far, the patient has no hypotensive episodes. The patient has no fever. The patient was admitted with a suspicion of possible sepsis. Rocephin was started. PAST MEDICAL HISTORY: As mentioned above, dementia, Down syndrome, hypothyroidism, developmental delay, seizure disorder, hyperlipidemia, seborrheic dermatitis, vitamin D deficiency. FAMILY HISTORY: Not available. REVIEW OF SYSTEMS: The patient unable to give any history. So far, the patient has no fever, no hypotension since her admission. SOCIAL HISTORY: The patient lives in a nursing facility. No history of smoking, alcohol or drug use. REVIEW OF SYSTEMS: Unable to give any history. ALLERGIES: NKDA. MEDICATIONS: As per medication reconciliation sheet. PHYSICAL EXAMINATION: VITAL SIGNS: Shows temperature 97.7 degrees Fahrenheit, pulse 74, respiration is 18, blood pressure 106/61, oxygen saturation 97%. GENERAL: The patient is comfortable, lying in the bed. HEAD, EYES, EARS, NOSE, AND THROAT: Head is normocephalic, atraumatic. Oral cavity is moist, pink tongue. Eyes: No pallor, no icterus. PERRLA, EOMI. NECK: Supple, no JVD, no carotid bruit. Trachea in midline. CHEST: Bilateral breath sounds. No crackles or wheezing. HEART: S1, S2 within normal limits. Regular rhythm. No murmur, no gallop. ABDOMEN: Soft, nontender, nondistended. Bowel sounds present. EXTREMITIES: No cyanosis, no clubbing, no edema. NEUROLOGIC: Alert and awake. Unable to communicate. LABORATORY AND DIAGNOSTIC DATA: Current lab shows WBC count of 5800, hemoglobin 13.1, hematocrit 39.8, platelets are 354,000, neutrophils 51%. Sodium 137, potassium 3.8, chloride 106, bicarbonate is 26, BUN is 14, creatinine 0.7, glucose is 89. Urinalysis negative nitrite, negative leukoesterase. Chest x-ray shows no acute disease. IMPRESSION: 1. Hypotension at the SNF, but no further episode since her arrival to the hospital. 2. Down syndrome. 3. Seizure disorder. 4. Hypertension. 5. Developmental delay. 6. Hyperlipidemia. 7. Seizure disorder. 8. Seborrheic dermatitis. 9. Vitamin D deficiency. RECOMMENDATIONS: The patient is doing well. No sign of any hypotension, may be worked up as outpatient basis. The patient can be discharged from nursing facility today. JOB# [id number] [facility]
[2017-11-10] MEDS ORDERED: cefTRIAXone 1 GM in Sodium Chloride 0.9% 50 ML IV SCH (20:00)
[2017-11-11] MEDS ORDERED: Calcium Carb/Vit D 500 mg/200 U Tab PO SCH (09:00)
[2017-11-11] MEDS ORDERED: Lactobacillus Rhamnosus GG 15 Billion CFU CAP.SPRINK PO SCH (09:00)
[2017-11-11] MEDS ORDERED: Aspirin 81mg Chewable Tab PO SCH (09:00)
--- NOTE | 2017-11-12 03:55 | Discharge Summary ---
DATE OF DISCHARGE: 11/10/2017 HISTORY OF PRESET ILLNESS AND HOSPITAL COURSE: The patient is a 62-year-old female with a past medical history of dementia, Down syndrome, hypothyroidism, developmental delay, seizure disorder, hyperlipidemia, seborrheic dermatitis, vitamin D deficiency, had a hypotensive episode at nursing facility with a blood pressure in the 90s. So, she was sent to the ER for further evaluation and management. Since arrival in the ER until discharge her blood pressure is normal. White count is normal. No abnormality, so the patient was discharge back to nursing facility. DISCHARGE CONDITION: Stable. DISCHARGE DIAGNOSES: 1. Hypotension. At nursing facility no hypotensive episodes. 2. Down syndrome. 3. Seizure disorder. 4. History of hypertension. 5. Developmental delay with hyperlipidemia. 6. Seborrheic dermatitis. 7. vitamin D deficiency. DISCHARGE PLAN: The patient will be followed by Dr Michaels. Discharge to nursing facility within 24 hours and can be followed by primary care physician Dr. Michaels. JOB# [id number] [facility]
== END 2017-11-10 20:22 | DRG 872 ==
LOC: ER 15:49 → TELE 18:45
PROVIDERS: ADMIT Internal Medicine Infectious Disease; ATTEND Internal Medicine Infectious Disease
DX: A41.9 Sepsis, unspecified organism (principal); Q90.9 Down syndrome, unspecified; F03.90 Unspecified dementia, unspecified severity, without behavioral disturbance, psychotic disturbance, mood disturbance, and anxiety; E03.9 Hypothyroidism, unspecified; E78.5 Hyperlipidemia, unspecified; G40.909 Epilepsy, unspecified, not intractable, without status epilepticus; E55.9 Vitamin D deficiency, unspecified; I10 Essential (primary) hypertension; R62.50 Unspecified lack of expected normal physiological development in childhood; L21.9 Seborrheic dermatitis, unspecified
CPT/HCPCS: 36415-UA; 71045-TC; 80053-TC; 81001-TC; 82948-90; 83605; 84443-TC; 85025-TC; 93005; J0696; Z7610